=== PATIENT | female | born 1935 | race Caucasian/White ===

== ENCOUNTER 2018-06-20 19:46 | Emergency (ER) | payer OTHER ==
--- NOTE | 2018-06-20 20:46 | RAD REPORT ---
EXAM DESCRIPTION: RAD - Chest Single View - 06/20/2018 8:40 pm CLINICAL HISTORY: SOB Chest pain. COMPARISON: Chest Pa And Lat (2 Views) dated 06/17/2018; Chest Pa And Lat (2 Views) dated 02/21/2018; C hest Single View dated 10/31/2016; Chest Single View dated 10/23/2016 FINDINGS: Portable technique limits examination quality. The lungs are grossly clear. Chronic elevation of the right hemidiaphragm is noted. The heart is norm al in size. No displaced fractures. IMPRESSION: No acute intrathoracic process suspected.
[2018-06-20 20:50] LABS: Absolute Lymphocytes (CBC) 3.3 K/uL (0.7-4.9); Absolute Monocytes 1.1 K/uL (0.1-1.3); Absolute Neutrophil 7.3 K/uL (1.8-8.0); Basophils % 0.7 % (0-1.3); Eosinophils % 2.2 % (0-4.4); Hematocrit 39.6 % (36.0-45.0); Lymphocytes % 27.4 % (15.3-44.8); MCH 27.3 pg (27.0-35.0); MCV 83.9 fL (80-100); MPV 10.1 fL (7.6-11.3); Monocytes % 9.2 % (3.3-12.3); RBC Red Blood Cell Count 4.72 M/uL (3.86-4.86)
[2018-06-20 20:51] LABS: Protime INR 0.97
[2018-06-20] MEDS ORDERED: LEVALBUTEROL 1.25 MG/3 ML NEB ONE (20:51)
[2018-06-20 21:07] LABS: Albumin 3.6 g/dL (3.4-5.0); Bilirubin Direct 0.1 mg/dL (0-0.2); Bilirubin Total 0.3 mg/dL (0.2-1.0); Magnesium 2.6 mg/dL (1.8-2.4); Potassium 3.9 mmol/L (3.5-5.1); Protein, Total 7.6 g/dL (6.4-8.2)
[2018-06-20] MEDS ORDERED: DEXAMETHASONE 10 MG/ML VIAL ONE (22:55)
[2018-06-20 23:04] LABS: Urine Blood NEGATIVE (NEG); Urine Glucose NEGATIVE (NEG); Urine Protein NEGATIVE (NEG)
[2018-06-20 23:30] LABS: Urine Bacteria <20 /HPF (<20); Urine Culture Reflex Order NOT NEEDED; Urine RBC <5 /HPF (NONE SEEN)
--- NOTE | 2018-06-21 00:35 | EDPHYS ---
Physician Documentation [facility] Name: Ciara Moraes Age: 82 yrs Sex: Female : 1935 Arrival Date: 06/20/2018 Time: 19:49 Bed 5 Private MD: ED Physician Kyler Oliveros HPI: 06/20 20:34 This 82 yrs old Female presents to ER via EMS with complaints of Shortness Of wa Breath. 20:34 The patient has shortness of breath at rest, and the patient has a history of SOB. per wa daughter, SOB x 5 months. Told by PMD consistent w/ COPD but recently saw Dr. Hoffman, pulm who said it is not. has pulm fxn tests and echo pending. per daughter, worsening cough x 1 week. SOB worsening x 1 week as well. generalized weakness and listlessness. denies chest pain. denies abd pain. denies fevers or chills. . Onset: The symptoms/episode began/occurred 5 month(s) ago. Duration: The symptoms are continuous, and are steadily getting worse. The patient's shortness of breath is aggravated by exertion, is alleviated by nothing. Associated signs and symptoms: Pertinent positives: non-productive cough, Pertinent negatives: chest pain, productive cough, diaphoresis, dizziness, fever, loss of consciousness, nausea, vomiting. Severity of symptoms: At their worst the symptoms were moderate in the emergency department the symptoms are worse markedly. The patient has experienced similar episodes in the past, several times. The patient has been recently seen by a physician: Dr. Hoffman. Historical: - Allergies: 19:52 NKA; bp - Home Meds: 19:52 Aricept Oral [Active]; Seroquel Oral [Active]; Synthroid Oral [Active]; bp - PMHx: 19:52 Alzheimers; Hypothyroidism; bp - Immunization history:: Adult Immunizations up to date. - Social history:: Smoking status: Patient/guardian denies using tobacco. - Ebola Screening: : Patient negative for fever greater than or equal to 101.5 degrees Fahrenheit, and additional compatible Ebola Virus Disease symptoms Patient denies exposure to infectious person Patient denies travel to an Ebola-affected area in the 21 days before illness onset No symptoms or risks identified at this time. - Family history:: not pertinent. - Hospitalizations: : No recent hospitalization is reported. ROS: 20:41 Constitutional: Negative for fever, chills, and weight loss, Eyes: Negative for injury, wa pain, redness, and discharge, ENT: Negative for injury, pain, and discharge, Neck: Negative for injury, pain, and swelling, Abdomen/GI: Negative for abdominal pain, nausea, vomiting, diarrhea, and constipation, Back: Negative for injury and pain, : Negative for injury, bleeding, discharge, and swelling, MS/Extremity: Negative for injury and deformity, Skin: Negative for injury, rash, and discoloration, Neuro: Negative for headache, weakness, numbness, tingling, and seizure, Psych: Negative for depression, anxiety, suicide ideation, homicidal ideation, and hallucinations. 20:41 Cardiovascular: Negative for chest pain, edema, orthopnea, palpitations, paroxysmal nocturnal dyspnea. 20:41 Respiratory: Positive for cough, with no reported sputum, shortness of breath, at rest. and on exertion. Exam: 20:42 Constitutional: This is a well developed, well nourished patient who is awake, alert, wa and in no acute distress. Head/Face: Normocephalic, atraumatic. Eyes: Pupils equal round and reactive to light, extra-ocular motions intact. Lids and lashes normal. Conjunctiva and sclera are non-icteric and not injected. Cornea within normal limits. Periorbital areas with no swelling, redness, or edema. ENT: Nares patent. No nasal discharge, no septal abnormalities noted. Tympanic membranes are normal and external auditory canals are clear. Oropharynx with no redness, swelling, or masses, exudates, or evidence of obstruction, uvula midline. Mucous membranes moist. Neck: Trachea midline, no thyromegaly or masses palpated, and no cervical lymphadenopathy. Supple, full range of motion without nuchal rigidity, or vertebral point tenderness. No Meningismus. Chest/axilla: Normal chest wall appearance and motion. Nontender with no deformity. No lesions are appreciated. Cardiovascular: Regular rate and rhythm with a normal S1 and S2. No gallops, murmurs, or rubs. Normal PMI, no JVD. No pulse deficits. Abdomen/GI: Soft, non-tender, with normal bowel sounds. No distension or tympany. No guarding or rebound. No evidence of tenderness throughout. Back: No spinal tenderness. No costovertebral tenderness. Full range of motion. Skin: Warm, dry with normal turgor. Normal color with no rashes, no lesions, and no evidence of cellulitis. MS/ Extremity: Pulses equal, no cyanosis. Neurovascular intact. Full, normal range of motion. Neuro: Awake and alert, GCS 15, oriented to person, place, time, and situation. Cranial nerves II-XII grossly intact. Motor strength 5/5 in all extremities. Sensory grossly intact. Cerebellar exam normal. Normal gait. Psych: Awake, alert, with orientation to person, place and time. Behavior, mood, and affect are within normal limits. 20:42 Respiratory: the patient does not display signs of respiratory distress, Respirations: tachypnea, that is mild, Breath sounds: mildly coarse bilaterally in the lower lung phelps, Respiratory rate: mildly tachypneic Vital Signs: 19:52 BP 136 / 64; Pulse 64; Resp 16; Temp 97.7; Pulse Ox 95% ; Weight 49.9 kg; Height 5 ft. bp 3 in. (160.02 cm); 20:18 BP 146 / 72; Pulse 60; Resp 16; Pulse Ox 94% on R/A; mt 21:19 BP 131 / 62; Pulse 64; Resp 16; Pulse Ox 100% ; bp 22:13 BP 130 / 60; Pulse 64; Resp 18; Pulse Ox 96% on R/A; tl2 23:04 BP 148 / 74; Pulse 71; Resp 20; Pulse Ox 96% on R/A; tl2 06/21 00:05 BP 146 / 67; Pulse 76; Resp 18; Pulse Ox 95% on R/A; tl2 00:30 BP 139 / 72; Pulse 67; Resp 14; Pulse Ox 97% ; bp 00:44 BP 139 / 72; Pulse 66; Resp 18; Pulse Ox 97% on R/A; tl2 06/20 19:52 Body Mass Index 19.49 (49.90 kg, 160.02 cm) bp MDM: 06/20 20:01 Patient medically screened. wa 20:43 Differential diagnosis: SOB. r/o acute cardiopulm etiologies. will work up wa comprehensively and reassess. 06/21 00:32 Data reviewed: vital signs, nurses notes, lab test result(s), EKG, radiologic studies. wa Test interpretation: by ED physician or midlevel provider: labs noted for elevated TSH. CXR nml. . 00:32 Test interpretation: by ED physician or midlevel provider: EKG: HR: 63. sinus. low QRS. pa non-specific ST-T changes. 06/20 20:28 Order name: Blood Culture Adult (2) 06/20 20:28 Order name: BMP; Complete Time: 23:58 pa 06/20 20:28 Order name: CBC with Diff; Complete Time: 21:16 06/20 20:28 Order name: Hepatic Function; Complete Time: 23:58 06/20 20:28 Order name: Lipase; Complete Time: 23:59 06/20 20:28 Order name: Magnesium; Complete Time: 23:59 06/20 20:28 Order name: NT PRO-BNP 06/20 20:28 Order name: PT-INR; Complete Time: 21:17 06/20 20:28 Order name: Troponin (emerg Dept Use Only); Complete Time: 21:17 06/20 20:28 Order name: Urine Microscopic Only; Complete Time: 23:59 06/20 22:05 Order name: Thyroid Stimulating Hormone; Complete Time: 23:59 EDMS 06/20 22:55 Order name: Urine Dipstick--Ancillary (enter results); Complete Time: 23:58 [facility] 06/20 23:09 Order name: T4 Free; Complete Time: 23:58 EDMS 06/20 20:28 Order name: XRAY CXR (1 view); Complete Time: 21:16 pa 06/20 20:28 Order name: EKG; Complete Time: 20:06/20 20:28 Order name: Cardiac monitoring; Complete Time: 20:06/20 20:28 Order name: EKG - Nurse/Tech; Complete Time: 20:06/20 20:28 Order name: IV Saline Lock; Complete Time: 20:06/20 20:28 Order name: Labs collected and sent; Complete Time: 20:06/20 20:28 Order name: O2 Per Protocol; Complete Time: 20:29 06/20 20:28 Order name: O2 Sat Monitoring; Complete Time: 20:06/20 20:28 Order name: Urine Dipstick-Ancillary (obtain specimen); Complete Time: 22:50 pa Administered Medications: 06/20 20:53 Drug: Xopenex 1.25 mg Route: Inhalation; tl2 22:55 Drug: Decadron - Dexamethasone 10 mg Route: IVP; Site: right antecubital; tl2 06/21 00:46 Follow up: Response: No adverse reaction tl2 Disposition: 06/21/18 00:34 Discharged to Home. Impression: Shortness of Breath, Hypothyroidism. - Condition is Stable. - Discharge Instructions: Hypothyroidism, Shortness of Breath, [id number]. - Medication Reconciliation Form, Thank You Letter, Antibiotic Education, Prescription Opioid Use form. - Follow up: Chapo Delacruz MD; When: Tomorrow; Reason: Recheck today's complaints. Follow up: Tip Raymond MD; When: 1 - 2 days; Reason: Recheck today's complaints. - Problem is an ongoing problem. - Symptoms have improved. - Notes: follow up with your doctors for your difficulty in breahting. also need folow up for low thyroid. return here for worsening concerns immediately Signatures: Dispatcher [employer] [facility] Aliza Fraser, RN RN tl2 Kyler Oliveros MD MD wa Peltier, Brian, RN RN bp Corrections: (The following items were deleted from the chart) 06/20 22:05 21:47 THYROID STIMULAT HORMONE+C.LAB.BRZ ordered. [facility] 06/21 00:47 00:34 06/21/2018 00:34 Discharged to Home. Impression: Shortness of Breath; tl2 Hypothyroidism. Condition is Stable. Forms are Medication Reconciliation Form, Thank You Letter, Antibiotic Education, Prescription Opioid Use. Follow up: Chapo Delacruz; When: Tomorrow; Reason: Recheck today's complaints. Follow up: Tip Raymond; When: 1 - 2 days; Reason: Recheck today's complaints. Problem is an ongoing problem. Symptoms have improved. wa
--- NOTE | 2018-06-21 00:35 | ER ---
Nurse's Notes [facility] Name: Ciara Moraes Age: 82 yrs Sex: Female : 1935 Arrival Date: 06/20/2018 Time: 19:49 Bed 5 Private MD: Diagnosis: Shortness of Breath;Hypothyroidism Presentation: 06/20 19:50 Presenting complaint: EMS states: THE FAMILY SAID SHE'S BEEN SHORT OF BREATH SINCE THIS bp MORNING. Transition of care: patient was not received from another setting of care. Onset of symptoms was June 20, 2018 at 09:00. Risk Assessment: Do you want to hurt yourself or someone else? Patient reports no desire to harm self or others. Initial Sepsis Screen: Does the patient meet any 2 criteria? No. Patient's initial sepsis screen is negative. Does the patient have a suspected source of infection? No. Patient's initial sepsis screen is negative. Care prior to arrival: Oxygen administered. via nasal cannula. 19:50 Method Of Arrival: EMS: [facility] bp 19:50 Acuity: MERLIN 3 bp Triage Assessment: 19:52 General: Appears in no apparent distress. comfortable, Behavior is calm, cooperative, bp appropriate for age. Pain: Denies pain. Historical: - Allergies: 19:52 NKA; bp - Home Meds: 19:52 Aricept Oral [Active]; Seroquel Oral [Active]; Synthroid Oral [Active]; bp - PMHx: 19:52 Alzheimers; Hypothyroidism; bp - Immunization history:: Adult Immunizations up to date. - Social history:: Smoking status: Patient/guardian denies using tobacco. - Ebola Screening: : Patient negative for fever greater than or equal to 101.5 degrees Fahrenheit, and additional compatible Ebola Virus Disease symptoms Patient denies exposure to infectious person Patient denies travel to an Ebola-affected area in the 21 days before illness onset No symptoms or risks identified at this time. - Family history:: not pertinent. - Hospitalizations: : No recent hospitalization is reported. Screenin:56 Abuse screen: Denies threats or abuse. Denies injuries from another. Nutritional bp screening: No deficits noted. Tuberculosis screening: No symptoms or risk factors identified. Fall Risk None identified. Assessment: 19:54 General: Appears in no apparent distress. comfortable, Behavior is calm, cooperative, bp appropriate for age. Pain: Denies pain. Neuro: Level of Consciousness is awake, alert, obeys commands, Oriented to person, place, situation, Appropriate for age. Cardiovascular: No deficits noted. Respiratory: Airway is patent Respiratory effort is even, unlabored, Respiratory pattern is regular, symmetrical. GI: No signs and/or symptoms were reported involving the gastrointestinal system. : No signs and/or symptoms were reported regarding the genitourinary system. EENT: No deficits noted. Derm: Skin is healthy with good turgor, Skin is clammy, Skin is normal, Skin temperature is cool. Musculoskeletal: Circulation, motion, and sensation intact. Range of motion: intact in all extremities. 21:19 Reassessment: ALL CURRENT ORDERS COMPLETED, LAB/RAD RESULTS PENDING. VS STABLE ON bp MONITOR. 22:14 Reassessment: Patient appears in no apparent distress at this time. Patient and/or tl2 family updated on plan of care and expected duration. Pain level reassessed. Patient is alert, oriented x 3, equal unlabored respirations, skin warm/dry/pink. Patient states feeling better. 23:05 Reassessment: Patient appears in no apparent distress at this time. Patient and/or tl2 family updated on plan of care and expected duration. Pain level reassessed. Patient is alert, oriented x 3, equal unlabored respirations, skin warm/dry/pink. 06/21 00:44 Reassessment: Patient appears in no apparent distress at this time. Patient and/or tl2 family updated on plan of care and expected duration. Pain level reassessed. Patient is alert, oriented x 3, equal unlabored respirations, skin warm/dry/pink. Pt verbalized understanding of discharge instructions, need for follow up. Patient states feeling better. Vital Signs: 06/20 19:52 BP 136 / 64; Pulse 64; Resp 16; Temp 97.7; Pulse Ox 95% ; Weight 49.9 kg; Height 5 ft. bp 3 in. (160.02 cm); 20:18 BP 146 / 72; Pulse 60; Resp 16; Pulse Ox 94% on R/A; mt 21:19 BP 131 / 62; Pulse 64; Resp 16; Pulse Ox 100% ; bp 22:13 BP 130 / 60; Pulse 64; Resp 18; Pulse Ox 96% on R/A; tl2 23:04 BP 148 / 74; Pulse 71; Resp 20; Pulse Ox 96% on R/A; tl2 06/21 00:05 BP 146 / 67; Pulse 76; Resp 18; Pulse Ox 95% on R/A; tl2 00:30 BP 139 / 72; Pulse 67; Resp 14; Pulse Ox 97% ; bp 00:44 BP 139 / 72; Pulse 66; Resp 18; Pulse Ox 97% on R/A; tl2 06/20 19:52 Body Mass Index 19.49 (49.90 kg, 160.02 cm) bp ED Course: 06/20 19:49 Patient arrived in ED. tl2 19:49 Nigel Huggins, RN is Primary Nurse. bp 19:51 Triage completed. bp 19:52 Inserted saline lock: 22 gauge in right antecubital area, using aseptic technique. tl2 Blood collected. placed by radha Ruiz. 19:54 Arm band placed on. bp 20:00 EKG done, by ED staff, reviewed by Kyler Oliveros MD. mt 20:00 Patient has correct armband on for positive identification. Bed in low position. Call bp light in reach. Side rails up X2. Adult w/ patient. 20:01 Kyler Oliveros MD is Attending Physician. wa 20:39 X-ray completed. Portable x-ray completed in exam room. Patient tolerated procedure bb2 well. 20:40 XRAY CXR (1 view) In Process Unspecified. EDNJ 06/21 00:33 Chapo Delacruz MD is Referral Physician. wa 00:34 Tip Raymond MD is Referral Physician. wa 00:44 No provider procedures requiring assistance completed. IV discontinued, intact, tl2 bleeding controlled, No redness/swelling at site. Pressure dressing applied. Administered Medications: 06/20 20:53 Drug: Xopenex 1.25 mg Route: Inhalation; tl2 22:55 Drug: Decadron - Dexamethasone 10 mg Route: IVP; Site: right antecubital; tl2 06/21 00:46 Follow up: Response: No adverse reaction tl2 Outcome: 00:34 Discharge ordered by . wa 00:44 Discharged to home ambulatory, with family. tl2 00:44 Condition: stable 00:44 Discharge instructions given to patient, family, Instructed on discharge instructions, follow up and referral plans. Demonstrated understanding of instructions, follow-up care. 00:47 Patient left the ED. tl2 Addendum: 06/28/2018 10:49 Addendum: Culture Results: Positive urine culture. faxed Culture report to Dr. Delacruz's s s office. Signatures: Dispatcher [employer] Alejandra Resendez RN RN ss Aliza Fraser RN RN tl2 Sara Romo fl Kyler Oliveros MD MD wa Peltier, Brian, RN RN Halina Riddle [facility]
[2018-06-21 00:55] VITALS: TEMP 97.7
[2018-06-21 01:03] VITALS: BP 139/72; O2SAT 97
--- NOTE | 2018-06-21 06:47 | EKG ---
Test Date: 2018-06-20 Test Time: 19:57:28 Smoke Chaser: ROGER MEASUREMENT RESULTS: Intervals: Rate: 63 NV: 214 QRSD: 72 QT: 414 QTc: 423 Tingley: P: 65 NV: 214 QRS: 50 T: 84 INTERPRETIVE STATEMENTS: Sinus rhythm with 1st degree AV block Low voltage QRS Nonspecific T wave abnormality Abnormal ECG Compared to ECG 11/01/2016 05:55:48 First degree AV block now present Low QRS voltage now present T-wave abnormality now present Electronically Signed On 06-21-18 06:46:10 CDT by Norbert Higuera
== END 2018-06-21 00:47 | disposition home or self-care (01) ==
LOC: ER 19:46
DX: R06.02 Shortness of breath (principal); E03.9 Hypothyroidism, unspecified; G30.9 Alzheimer's disease, unspecified; F02.80 Dementia in other diseases classified elsewhere, unspecified severity, without behavioral disturbance, psychotic disturbance, mood disturbance, and anxiety
CPT/HCPCS: 36415; 71045; 80048; 80076; 83690; 83735; 83880; 84439; 84443; 84484; 85025; 85610; 87040 ×2; 87205 ×3; 93005; 96374; 99285; J1100; 81003; 81015; 87077; 87186

== ENCOUNTER 2019-08-03 12:52 | Inpatient (IN) | payer OTHER ==
[2019-08-03] MEDS ORDERED: LEVALBUTEROL 1.25 MG/3 ML NEB ONE ×2 (13:25→15:50)
[2019-08-03 13:39] LABS: Absolute Lymphocytes (CBC) 2.9 K/uL (0.7-4.9); Basophils % 0.7 % (0-1.3); Hematocrit 32.3 % (36.0-45.0); Lymphocytes % 15.3 % (15.3-44.8); MPV 10.1 fL (7.6-11.3); RBC Red Blood Cell Count 4.04 M/uL (3.86-4.86)
[2019-08-03 13:40] LABS: Protime INR 1.15
[2019-08-03 13:58] LABS: ALT/SGPT 9 U/L (12-78); AST/SGOT 10 U/L (15-37); Albumin 2.9 g/dL (3.4-5.0); Alkaline Phosphatase 96 U/L (45-117); BUN Blood Urea Nitrogen 14 mg/dL (7-18); Bicarbonate 25 mmol/L (21-32); Bilirubin Direct 0.2 mg/dL (0-0.2); Bilirubin Total 0.6 mg/dL (0.2-1.0); Glucose Level 122 mg/dL (74-106); NT PRO-BNP 878 pg/mL (<450); Potassium 3.2 mmol/L (3.5-5.1); Protein, Total 6.8 g/dL (6.4-8.2); Sodium Level 137 mmol/L (136-145); Troponin (Emerg Dept Use Only) < 0.02 ng/mL (0.0-0.045)
--- NOTE | 2019-08-03 14:32 | RAD REPORT ---
EXAM DESCRIPTION: RAD - Chest Single View - 08/03/2019 2:23 pm CLINICAL HISTORY: Cough;SOB Chest pain. COMPARISON: Chest Single View dated 06/20/2018; Chest Pa And Lat (2 Views) dated 06/17/2018; Chest Pa And Lat (2 Views) dated 02/21/2018; Chest Single View dated 10/31/2016 FINDINGS: Portable technique limits examination quality. Ill-defined opacities are present in the right lung base suspicious for developing pneumonia. Mild at electasis is also seen in the left lung base. Small right pleural effusion is likely present. The hea rt is mildly prominent in size. Aortic atherosclerosis is noted.
[2019-08-03 14:57] LABS: Urine Bacteria 20-50 /HPF (<20); Urine Culture Reflex Order REFLEXED; Urine Mucus 1+ /HPF (NONE SEEN); Urine RBC <5 /HPF (NONE SEEN)
--- NOTE | 2019-08-03 15:02 | EDPHYS ---
Physician Documentation [facility] Name: Ciara Moraes Age: 83 yrs Sex: Female : 1935 Arrival Date: 08/03/2019 Time: 12:57 Bed 19 Private MD: Chapo Delacruz V ED Physician Joseph Lane HPI: 08/03 12:58 This 83 yrs old Female presents to ER via Unassigned with complaints of cp Productive Cough. 13:00 The patient or guardian reports cough. cp 13:00 Onset: The symptoms/episode began/occurred 2 day(s) ago. cp 13:00 Associated signs and symptoms: Pertinent positives: chest pain, right side of chest, cp fever, shortness of breath, Pertinent negatives: diarrhea, vomiting. Severity of symptoms: in the emergency department the symptoms have improved mildly. Historical: - Allergies: 13:07 NKA; ca1 - Home Meds: 13:07 Synthroid Oral [Active]; ca1 - PMHx: 13:07 Alzheimers; Hypothyroidism; ca1 - Immunization history:: Adult Immunizations up to date. - Social history:: Smoking status: Patient/guardian denies using tobacco. - Ebola Screening: : Patient negative for fever greater than or equal to 101.5 degrees Fahrenheit, and additional compatible Ebola Virus Disease symptoms Patient denies exposure to infectious person Patient denies travel to an Ebola-affected area in the 21 days before illness onset No symptoms or risks identified at this time. ROS: 13:05 Constitutional: Positive for fever, Negative for body aches, poor PO intake. cp 13:05 Eyes: Negative for injury, pain, redness, and discharge. cp 13:05 ENT: Negative for drainage from ear(s), ear pain, sore throat, difficulty swallowing, difficulty handling secretions. 13:05 Cardiovascular: Negative for chest pain, edema. 13:05 Respiratory: Positive for cough, "sounds productive", shortness of breath, at rest. wheezing. 13:05 Abdomen/GI: Negative for abdominal pain, nausea, vomiting, and diarrhea. 13:05 Skin: Negative for rash. 13:05 Neuro: Negative for altered mental status, headache, weakness. 13:05 All other systems are negative. Exam: 13:12 Constitutional: The patient appears alert, awake, non-diaphoretic, non-toxic, well cp developed, well nourished, in obvious distress, mildly distressed. 13:12 Head/Face: Normocephalic, atraumatic. cp 13:12 Eyes: Periorbital structures: appear normal, Conjunctiva: normal, no exudate, no cp injection, Sclera: no appreciated abnormality, Lids and lashes: appear normal, bilaterally. 13:12 ENT: External ear(s): are unremarkable, Ear canal(s): are normal, clear, TM's: bulging, is not appreciated, bilaterally, dullness, bilaterally, erythema, is not appreciated, bilaterally, Nose: is normal, Mouth: Lips: moist, Oral mucosa: pink and intact, moist, Posterior pharynx: is normal, airway is patent, no erythema, no exudate. 13:12 Neck: ROM/movement: is normal, is supple, without pain, no range of motions limitations, no meningismus, no nuchal rigidity. 13:12 Chest/axilla: Inspection: normal, Palpation: is normal, no crepitus, no tenderness. 13:12 Cardiovascular: Rate: normal, Rhythm: regular, Edema: is not appreciated, JVD: is not appreciated. 13:12 Respiratory: mild respiratory distress is noted, Respirations: tachypnea, that is mild, Breath sounds: rhonchi, that are mild, are heard in the right posterior middle lobe and right posterior lower lobe, stridor, is not appreciated, wheezing: that is mild, is heard diffusely. 13:12 Abdomen/GI: Inspection: abdomen appears normal, Bowel sounds: active, all quadrants, Palpation: abdomen is soft and non-tender, in all quadrants, rebound tenderness, is not appreciated, voluntary guarding, is not appreciated, involuntary guarding, is not appreciated. 13:12 Back: CVA tenderness, is absent. 13:12 Skin: no rash present. 13:12 Neuro: Orientation: no acute changes, Mentation: is normal. 13:15 ECG was reviewed by the Attending Physician. cp Vital Signs: 13:07 BP 156 / 58; Pulse 85; Resp 19 S; Temp 99(A); Pulse Ox 100% on Nebulizer Mask; Weight ca1 49.9 kg (R); Height 5 ft. 2 in. (157.48 cm) (R); Pain 0/10; 14:00 BP 123 / 46; Pulse 100; Resp 26; Pulse Ox 100% on Nebulizer Mask; ca1 15:00 BP 131 / 51; Pulse 99; Resp 21 S; Temp 98.3(O); Pulse Ox 100% on Nebulizer Mask; ca1 16:47 BP 140 / 50; Pulse 105; Resp 22 S; Pulse Ox 96% on R/A; ca1 17:34 BP 127 / 58; Pulse 113; Resp 25; Temp 98(O); Pulse Ox 98% on R/A; ca1 13:07 Body Mass Index 20.12 (49.90 kg, 157.48 cm) ca1 MDM: 12:58 Patient medically screened. cp 13:30 Differential diagnosis: bronchitis, flu, pneumonia, sepsis, respiratory failure. cp 14:58 Physician consultation: Chapo Delacruz MD was called at 15:00, was contacted at 15:00, cp regarding admission, to the telemetry unit. patient's condition. 15:00 Data reviewed: vital signs, nurses notes. cp 15:00 Antibiotic administration: Levaquin given. 08/03 12:59 Order name: Basic Metabolic Panel; Complete Time: 14:51 08/03 14:54 Interpretation: Normal except: K 3.2; GLUC 122; GFR 48; CA 8.0. 08/03 12:59 Order name: CBC with Diff; Complete Time: 14:51 08/03 15:14 Interpretation: Normal except: WBC 18.8; HGB 10.8; HCT 32.3; MCV 80.0; MCH 26.7; NEUT A cp 13.8; MNA 1.8. 08/03 12:59 Order name: LFT's; Complete Time: 14:51 08/03 12:59 Order name: Magnesium; Complete Time: 14:51 08/03 12:59 Order name: NT PRO-BNP; Complete Time: 14:51 08/03 12:59 Order name: PT-INR; Complete Time: 14:51 08/03 12:59 Order name: Troponin (emerg Dept Use Only); Complete Time: 14:51 08/03 12:59 Order name: Procalcitonin; Complete Time: 14:51 08/03 14:52 Interpretation: Reviewed. 08/03 12:59 Order name: Lactate; Complete Time: 14:51 08/03 14:52 Interpretation: Within normal limits: LAC 1.4. cp / 12:59 Order name: Influenza Screen (a \\T\\ B); Complete Time: 14:51 cp / 12:59 Order name: Urine Microscopic Only; Complete Time: 14:58 cp / 12:59 Order name: Blood Culture Adult (2) cp / 14:58 Order name: Urine Culture [facility] 08/03 15:00 Order name: Urine Dipstick--Ancillary (enter results) bd 08/03 12:59 Order name: XRAY Chest (1 view); Complete Time: 14:51 cp 08/03 15:21 Order name: Basic Metabolic Panel [facility] 08/03 15:21 Order name: Basic Metabolic Panel [facility] 08/03 15:21 Order name: CBC with Automated Diff [facility] 08/03 15:21 Order name: CBC with Automated Diff [facility] 08/03 15:22 Order name: NT PRO-BNP [facility] 08/03 15:22 Order name: NT PRO-BNP [facility] 08/03 15:22 Order name: Troponin I [facility] 08/03 15:22 Order name: Troponin I [facility] 08/03 15:22 Order name: Troponin I [facility] 08/03 17:51 Order name: Sputum Culture 08/03 12:59 Order name: EKG; Complete Time: 13:01 08/03 12:59 Order name: Cardiac monitoring; Complete Time: 13:37 08/03 12:59 Order name: EKG - Nurse/Tech; Complete Time: 13:37 08/03 12:59 Order name: IV Saline Lock; Complete Time: 13:37 08/03 12:59 Order name: Labs collected and sent; Complete Time: 13:37 08/03 12:59 Order name: O2 Per Protocol; Complete Time: 13:37 08/03 12:59 Order name: O2 Sat Monitoring; Complete Time: 13:38 08/03 12:59 Order name: Urine Dipstick-Ancillary (obtain specimen); Complete Time: 14:39 08/03 15:21 Order name: Regular EDMS EC:15 Rate is 89 beats/min. Rhythm is regular. IN interval is normal. QRS interval is normal. cp QT interval is normal. Interpreted by me. Reviewed by me. Administered Medications: 13:24 Drug: Xopenex (3) 1.25 mg Route: Inhalation; ca1 15:20 Drug: Potassium Effervescent Tablet 50 mEq Route: PO; ca1 16:30 Follow up: Response: No adverse reaction ca1 15:28 Drug: Aspirin Chewable Tablet 324 mg Route: PO; ca1 16:30 Follow up: Response: No adverse reaction ca1 15:30 Drug: LevaQUIN 750 mg Volume: 150 ml; Route: IVPB; Infused Over: 90 mins; Site: left ca1 antecubital; 16:30 Follow up: Response: No adverse reaction; IV Status: Completed infusion ca1 16:00 Drug: Xopenex (3) 1.25 mg Route: Inhalation; ca1 Disposition: 18:44 Co-signature as Attending Physician, Joseph Lane MD. ma2 Disposition: 08/03/19 15:01 Hospitalization ordered by Chapo Delacruz for Inpatient Admission. Preliminary diagnosis is Pneumonia due to other specified bacteria. - Bed requested for Telemetry/MedSurg (Inpatient). - Status is Inpatient Admission. ca1 - Condition is Stable. - Problem is new. - Symptoms have improved. UTI on Admission? No Signatures: Dispatcher [employer] EDJessica Little RN RN Pito Alarcon PA PA cp Joseph Lane MD MD al2 Natasha Chamorro RN RN ca1 Corrections: (The following items were deleted from the chart) 14:54 14:51 Normal except: K 3.2; GLUC 122; GFR 48. cp cp 15:14 14:51 Normal except: WBC 18.8; HGB 10.8; HCT 32.3; MCV 80.0; MCH 26.7; NEUT A 13.8. cp cp 16:31 15:01 Hospitalization Ordered by Chapo Delacruz MD for Inpatient Admission. Preliminary dw diagnosis is Pneumonia due to other specified bacteria. Bed requested for Telemetry/MedSurg (Inpatient). Status is Inpatient Admission. Condition is Stable. Problem is new. Symptoms have improved. UTI on Admission? No. cp 18:07 16:31 08/03/2019 15:01 Hospitalization Ordered by Chapo Delacruz MD for Inpatient ca1 Admission. Preliminary diagnosis is Pneumonia due to other specified bacteria. Bed requested for Telemetry/MedSurg (Inpatient). Status is Inpatient Admission. Condition is Stable. Problem is new. Symptoms have improved. UTI on Admission? No. dw
--- NOTE | 2019-08-03 15:02 | ER ---
Nurse's Notes [facility] Name: Ciara Moraes Age: 83 yrs Sex: Female : 1935 Arrival Date: 08/03/2019 Time: 12:57 Bed 19 Private MD: Chapo Delacruz V Diagnosis: Pneumonia due to other specified bacteria Presentation: 08/03 12:58 Presenting complaint: EMS states: Pt has been having productive cough for few days, ca1 today pt c/o chest and back pain, mostly on the side and shortness of breath. Upon auscultation, wheezing as present mostly on the R lobe. Pt febrile at 101F axillary. Transition of care: patient was received from another setting of care (long-term care facility), [facility]. Onset of symptoms was August 03, 2019. Risk Assessment: Do you want to hurt yourself or someone else? Patient reports no desire to harm self or others. Initial Sepsis Screen: Does the patient meet any 2 criteria? No. Patient's initial sepsis screen is negative. Does the patient have a suspected source of infection? Yes: Productive cough/pneumonia. Care prior to arrival: Medication(s) given: Albuterol Neb x 1, Atrovent Neb x 1, Normal saline infusion, 200ML Tylenol, 1G IV zofran 4 mg, IV initiated. 20 GA, in the left antecubital area, Med neb given. 12:58 Method Of Arrival: EMS: [facility] ca1 12:58 Acuity: MERLIN 2 ca1 Triage Assessment: 13:07 General: Appears in no apparent distress. comfortable, Behavior is calm, cooperative, ca1 appropriate for age. Pain: Denies pain. Respiratory: Reports shortness of breath since today Onset: The symptoms/episode began/occurred this morning, the patient has moderate shortness of breath. Historical: - Allergies: 13:07 NKA; ca1 - Home Meds: 13:07 Synthroid Oral [Active]; ca1 - PMHx: 13:07 Alzheimers; Hypothyroidism; ca1 - Immunization history:: Adult Immunizations up to date. - Social history:: Smoking status: Patient/guardian denies using tobacco. - Ebola Screening: : Patient negative for fever greater than or equal to 101.5 degrees Fahrenheit, and additional compatible Ebola Virus Disease symptoms Patient denies exposure to infectious person Patient denies travel to an Ebola-affected area in the 21 days before illness onset No symptoms or risks identified at this time. Screenin:10 Abuse screen: Denies threats or abuse. Denies injuries from another. Nutritional ca1 screening: No deficits noted. Tuberculosis screening: No symptoms or risk factors identified. Fall Risk IV access (20 points). Ambulatory Aid- Crutches/Cane/Walker (15 pts). Gait- Weak (10 pts.). Total [place] Fall Scale indicates High Risk Score (45 or more points). Fall prevention measures have been instituted. Side Rails Up X 2 Frequent Obs/Assessments Occuring Family Present and informed to notify staff if the need to leave the bedside As available patient and family educated on Fall Prevention Program and Strategies. Assessment: 13:10 General: Appears in no apparent distress. uncomfortable, Behavior is calm, cooperative, ca1 appropriate for age. Pain: Complains of pain in chest Pain does not radiate. Pain currently is 0 out of 10 on a pain scale. at worst was 4 out of 10 on a pain scale. Pain began today Is intermittent. Neuro: Level of Consciousness is awake, alert, obeys commands, Oriented to person, place, time, situation. Cardiovascular: Heart tones S1 S2 present Capillary refill < 3 seconds Patient's skin is warm and dry. Pulses are all present. Rhythm is sinus tachycardia. Respiratory: Reports shortness of breath on exertion cough that is productive, since few days ago Airway is patent Respiratory effort is even, unlabored, Respiratory pattern is regular, symmetrical, Breath sounds are clear bilaterally. GI: Abdomen is flat, non-distended, Bowel sounds present X 4 quads. Abd is soft and non tender X 4 quads. : No deficits noted. No signs and/or symptoms were reported regarding the genitourinary system. EENT: No deficits noted. No signs and/or symptoms were reported regarding the EENT system. Derm: Skin is intact, is fragile, is thin, Skin is pink, warm \\T\\ dry. Musculoskeletal: Circulation, motion, and sensation intact. Capillary refill < 3 seconds, Range of motion: intact in all extremities. 14:00 Reassessment: Patient appears in no apparent distress at this time. Patient and/or ca1 family updated on plan of care and expected duration. Pain level reassessed. Patient is alert, oriented x 3, equal unlabored respirations, skin warm/dry/pink. 15:52 Reassessment: Patient is alert, oriented x 3, equal unlabored respirations, skin ca1 warm/dry/pink. Reassessment: Notified provider. Orders given. Respiratory: Airway is patent Respiratory effort is even, labored, Respiratory pattern is regular, symmetrical, Breath sounds with wheezes in right upper lobe, right posterior upper lobe and right posterior middle lobe. 16:41 Reassessment: Patient appears in no apparent distress at this time. Patient and/or ca1 family updated on plan of care and expected duration. Pain level reassessed. Patient is alert, oriented x 3, equal unlabored respirations, skin warm/dry/pink. 16:41 Respiratory: Airway is patent Respiratory effort is even, unlabored, Respiratory ca1 pattern is regular, symmetrical. 16:42 Reassessment: Called for report. Nurse will call back. ca1 17:04 Reassessment: Called for report. Nurse will call back. ca1 17:34 Reassessment: Patient appears in no apparent distress at this time. Patient and/or ca1 family updated on plan of care and expected duration. Pain level reassessed. Patient is alert, oriented x 3, equal unlabored respirations, skin warm/dry/pink. Daughter at bedside, reports, "My mom has breathing problems and doctors cannot figure out why. She has several test done for her lungs and heart and they couldn't find out what is wrong. A slightest exertion will make her short of breath.". 17:42 Reassessment: Dr. Delacruz at bedside. ca1 17:42 Reassessment: Called for report. Put on hold. Had to attend to other pt. ca1 Vital Signs: 13:07 BP 156 / 58; Pulse 85; Resp 19 S; Temp 99(A); Pulse Ox 100% on Nebulizer Mask; Weight ca1 49.9 kg (R); Height 5 ft. 2 in. (157.48 cm) (R); Pain 0/10; 14:00 BP 123 / 46; Pulse 100; Resp 26; Pulse Ox 100% on Nebulizer Mask; ca1 15:00 BP 131 / 51; Pulse 99; Resp 21 S; Temp 98.3(O); Pulse Ox 100% on Nebulizer Mask; ca1 16:47 BP 140 / 50; Pulse 105; Resp 22 S; Pulse Ox 96% on R/A; ca1 17:34 BP 127 / 58; Pulse 113; Resp 25; Temp 98(O); Pulse Ox 98% on R/A; ca1 13:07 Body Mass Index 20.12 (49.90 kg, 157.48 cm) ca1 ED Course: 12:57 Patient arrived in ED. ca1 12:57 Pito Mackay PA is PHCP. cp 12:[address] MD is Attending Physician. cp 13:05 Triage completed. ca1 13:07 Arm band placed on right wrist. ca1 13:10 Patient has correct armband on for positive identification. Placed in gown. Bed in low ca1 position. Call light in reach. Side rails up X2. developmental services worker on. Pulse ox on. NIBP on. Warm blanket given. Head of bed elevated. 13:17 Natasha Chamorro, RN is Primary Nurse. ca1 13:21 EKG done, by automation engineering technician. reviewed by Pito SOSA. at1 13:30 No provider procedures requiring assistance completed. ca1 13:30 Maintain EMS IV. Dressing intact. Good blood return noted. Site clean \\T\\ dry. Gauge \\T\\ ca 1 site: G20 LAC. 14:24 XRAY Chest (1 view) In Process Unspecified. EDMS 14:57 Chapo Delacruz MD is Private Physician. cp 15:01 Chapo Delacruz MD is Hospitalizing Provider. cp 16:35 Patient admitted, IV remains in place. ca1 Administered Medications: 13:24 Drug: Xopenex (3) 1.25 mg Route: Inhalation; ca1 15:20 Drug: Potassium Effervescent Tablet 50 mEq Route: PO; ca1 16:30 Follow up: Response: No adverse reaction ca1 15:28 Drug: Aspirin Chewable Tablet 324 mg Route: PO; ca1 16:30 Follow up: Response: No adverse reaction ca1 15:30 Drug: LevaQUIN 750 mg Volume: 150 ml; Route: IVPB; Infused Over: 90 mins; Site: left ca1 antecubital; 16:30 Follow up: Response: No adverse reaction; IV Status: Completed infusion ca1 16:00 Drug: Xopenex (3) 1.25 mg Route: Inhalation; ca1 Outcome: 15:01 Decision to Hospitalize by Provider. cp 18:00 Admitted to Med/surg accompanied by tech, via wheelchair, room 202, with oxygen, with ca1 chart, Report called to FLORIN Julian 18:00 Condition: stable 18:00 Instructed on the need for admit. 18:07 Patient left the ED. ca1 Signatures: Dispatcher [employer] EDMS Susan Alicea, press operator helper EKG Tat1 Pito Mackay PA PA cp Acob, Cheryl RN RN ca1 Corrections: (The following items were deleted from the chart) 16:33 13:30 No provider procedures requiring assistance completed. ca1 ca1 16:33 13:30 Inserted saline lock: 22 gauge in right antecubital area, using aseptic ca1 technique. ,using aseptic technique. By FLORIN GUTIERREZ Blood collected. ca1 16:37 12:58 Initial Sepsis Screen: Does the patient meet any 2 criteria? No. Patient's ca1 initial sepsis screen is negative. Does the patient have a suspected source of infection? No. Patient's initial sepsis screen is negative. ca1 16:43 16:41 Reassessment: Patient appears in no apparent distress at this time. Patient ca1 and/or family updated on plan of care and expected duration. Pain level reassessed. Patient is alert, oriented x 3, equal unlabored respirations, skin warm/dry/pink. ca1
[2019-08-03] MEDS ORDERED: Levofloxacin 750mg IV 750 MG/150 ML BAG IV ONE (15:15)
[2019-08-03] MEDS ORDERED: POTASSIUM 25 MEQ EFFERV TAB ONE (15:15)
[2019-08-03] MEDS ORDERED: ASPIRIN 81 MG CHEWABLE TABLET ONE (15:15)
[2019-08-03] MEDS ORDERED: MORPHINE 2 MG/ML SYR IV PRN (15:17)
[2019-08-03] MEDS ORDERED: ONDANSETRON 4 MG/2 ML VIAL IV PRN (15:17)
[2019-08-03] MEDS ORDERED: ALBUTEROL 2.5 MG/3 ML NEB SOL NEB PRN (15:17)
[2019-08-03] MEDS ORDERED: ACETAMINOPHEN 500 MG TAB PO PRN (15:17)
[2019-08-03 15:18] LABS: Urine Blood TRACE (NEG); Urine Glucose NEGATIVE (NEG); Urine Protein TRACE (NEG); Urine Specific Gravity 1.015 (1.005-1.030)
[2019-08-03] MEDS: ENOXAPARIN 40 MG/0.4 ML SQ SCH (18:37)
--- NOTE | 2019-08-03 21:22 | P.HP ---
Certification for Inpatient Patient admitted to: Inpatient With expected LOS: >2 Midnights Practitioner: I am a practitioner with admitting privileges, knowledge of patient current condition, hospital course, and medical plan of care. Services: Services provided to patient in accordance with Admission requirements found in Title 42 Section 412.3 of the Code of Federal Regulations Patient History Date of Service: 08/03/19 Reason for admission: DYSPNEA, COUGH, FEVER. History of Present Illness: MS VARGHESE L[facility] AT [facility]. SHE HAS COPD BY HISTORY BUT ON TOP OF THAT SHE HAS DYSPNEA, COUGH, AND FEVER FOR 3 DAYS. SHE HAS PNUMONIA AND WAS GIVEN LEVAQUIN IN THE ER. Allergies No Known Allergies Allergy (Verified 10/22/16 17:12) Home Medications: Donepezil HCl 23 mg PO DAILY 08/03/19 Levothyroxine [Synthroid] 88 mcg PO [id number] 08/03/19 Paroxetine HCl [Paxil] 40 mg PO BEDTIME 08/03/19 Quetiapine Fumarate [Seroquel] 50 mg PO [id number] 08/03/19 Quetiapine Fumarate [Seroquel] 100 mg PO BEDTIME 08/03/19 - Past Medical/Surgical History Has patient received pneumonia vaccine in the past: Yes Diabetic: No -: hypothyroidism -: alzhemiers -: hysterectomy -: appendectomy - Family History Brother -: Cancer Notes: alzhemiers Sister -: Cancer Notes: alzhemiers - Social History Smoking Status: Never smoker Alcohol use: No CD- Drugs: No Caffeine use: Yes Place of Residence: [facility] Review of Systems 10-point ROS is otherwise unremarkable General: Weakness, Malaise Respiratory: Shortness of Breath Physical Examination - Vital Signs Temperature: 98 F Blood Pressure: 127/58 Pulse: 113 Respirations: 25 - Physical Exam General: Mild distress HEENT: Atraumatic, PERRLA, Mucous membr. moist/pink, EOMI, Sclerae nonicteric Neck: Supple, 2+ carotid pulse no bruit, No LAD, Without JVD or thyroid abnormality Respiratory: Diminished, Expiratory wheezes Cardiovascular: Regular rate/rhythm, Normal S1 S2 Gastrointestinal: Normal bowel sounds, No tenderness Musculoskeletal: No tenderness Integumentary: No rashes Neurological: Normal gait, Normal speech, Normal strength at 5/5 x4 extr, Normal tone, Normal affect Lymphatics: No axilla or inguinal lymphadenopathy - Studies Laboratory Data (last 24 hrs) 08/03/19 13:10: PT 13.5 H, INR 1.15 08/03/19 13:10: WBC 18.8 H, Hgb 10.8 L, Hct 32.3 L, Plt Count 266 08/03/19 13:10: Sodium 137, Potassium 3.2 L, BUN 14, Creatinine 1.09, Glucose 122 H, Magnesium 2.0 D, Total Bilirubin 0.6, AST 10 L, ALT 9 L, Alkaline Phosphatase 96 Microbiology Data (last 24 hrs): 08/03/19 13:15 Nasopharnyx Influenza Type A Antigen Screen - Final 08/03/19 13:15 Nasopharnyx Influenza Type B Antigen Screen - Final Assessment and Plan - Problems (Diagnosis) (1) Bacterial pneumonia Current Visit: Yes Status: Acute Plan: IV LEVAQUIN AND ZITHROMAX ARE RECOMMENDATIONS FOR COMMUNITY ACQUIRED PNEUMONIA. SPUTUM CULTURE CT SCAN IF NOT BETTER. (2) Chronic dyspnea Current Visit: Yes Status: Chronic Plan: HE RFULL CARDIAC AND PULMOANRY BALDERAS IS NEGATIVE BUT HER SYMPTOMS SUGGEST OF COPD WITH HISTORY OF SECOND HAND SMOKING. - Advance Directives Does patient have a Living Will: Yes Does patient have a Durable POA for Healthcare: Yes
[2019-08-03] MEDS: PARoxetine HCl 10 MG TAB PO SCH (22:13)
[2019-08-03] MEDS: QUETIAPINE 100MG TAB PO SCH (22:13)
[2019-08-03 23:14] VITALS: BMI 20.1
[2019-08-04] MEDS: ALBUTEROL 2.5 MG/3 ML NEB SOL NEB SCH ×4 (02:00→20:00)
[2019-08-04] MEDS: QUETIAPINE 25 MG TAB PO SCH (05:19)
[2019-08-04] MEDS: LEVOTHYROXINE SOD 0.088 MG TAB PO SCH (05:19)
[2019-08-04 05:57] LABS: Absolute Lymphocytes (CBC) 0.6 K/uL (0.7-4.9); Basophils % 0.4 % (0-1.3); Hematocrit 29.9 % (36.0-45.0); Lymphocytes % 2.4 % (15.3-44.8); MPV 10.1 fL (7.6-11.3); RBC Red Blood Cell Count 3.75 M/uL (3.86-4.86)
[2019-08-04 06:20] LABS: Potassium 3.5 mmol/L (3.5-5.1)
[2019-08-04 07:00] LABS: Blood Morphology Comment NOT SEEN (NOT SEEN); Platelet Estimate ADEQ
--- NOTE | 2019-08-04 07:41 | EKG ---
Test Date: 2019-08-03 Test Time: 13:07:14 Cpht: JESSICA MEASUREMENT RESULTS: Intervals: Rate: 89 IA: 154 QRSD: 74 QT: 388 QTc: 472 [place]: P: 0 IA: 154 QRS: 9 T: 190 INTERPRETIVE STATEMENTS: Normal sinus rhythm Low voltage QRS Nonspecific ST and T wave abnormality Prolonged QT Abnormal ECG Compared to ECG 06/20/2018 19:57:28 ST (T wave) deviation now present Prolonged QT interval now present First degree AV block no longer present T-wave abnormality no longer present Electronically Signed On 08-04-19 07:38:21 CDT by Irwin Delong
[2019-08-04] MEDS ORDERED: VANCOMYCIN 1.25 GM in NA CHLORIDE 0.9% 250 ML IVPB ONE (09:00)
[2019-08-04] MEDS ORDERED: AZITHROMYCIN IV 500 MG in NA CHLORIDE 0.9% 250 ML IVPB SCH (09:00)
[2019-08-04] MEDS ORDERED: Meropenem 1000 MG/VIAL IV SCH (09:00)
[2019-08-04] MEDS ORDERED: VANCOMYCIN/NS 1 gm 1 GM/250 ML BAG IV SCH (09:00)
[2019-08-04] MEDS: ENOXAPARIN 40 MG/0.4 ML SQ SCH (10:05)
[2019-08-04] MEDS: Meropenem 1,000 MG in NA CHLORIDE 0.9% 100 ML IV SCH ×2 (10:05→21:17)
--- NOTE | 2019-08-04 14:21 | P.PN ---
Subjective Date of Service: 08/04/19 Chief Complaint: DYSPNEA, COUGH, FEVER. Subjective: No new changes SHE HAS SIGNIFICANT DEMENTIA AND NOT ABLE TO DESCRIBE IF SHE IS BETTER OR WORSE. Review of Systems 10-point ROS is otherwise unremarkable General: Weakness, Malaise Respiratory: Cough, Shortness of Breath Physical Examination - Vital Signs Temperature: 97.3 F Blood Pressure: 125/61 Pulse: 80 Respirations: 18 Pulse Ox (%): 94 - Physical Exam General: Mild distress HEENT: Atraumatic, PERRLA, EOMI Neck: Supple, JVD not distended Respiratory: Diminished, Rhonchi/gurgles Cardiovascular: Regular rate/rhythm, Normal S1 S2 Gastrointestinal: Normal bowel sounds, No tenderness Musculoskeletal: No tenderness Integumentary: No rashes Neurological: Normal speech, Normal tone, Normal affect Lymphatics: No axilla or inguinal lymphadenopathy - Studies Laboratory Data (last 24 hrs) 08/03/19 13:10: PT 13.5 H, INR 1.15 Microbiology Data (last 24 hrs): 08/03/19 13:15 Nasopharnyx Influenza Type A Antigen Screen - Final 08/03/19 13:15 Nasopharnyx Influenza Type B Antigen Screen - Final Medications List Reviewed: Yes Assessment And Plan - Current Problems (Diagnosis) (1) Bacterial pneumonia Current Visit: Yes Status: Acute Plan: IV LEVAQUIN AND ZITHROMAX ARE RECOMMENDATIONS FOR COMMUNITY ACQUIRED PNEUMONIA. SPUTUM CULTURE CT SCAN IF NOT BETTER. CLINICALLY SHE LOOKS BETTER BUT HER WBC IS HIGHER. I WILL CHANGE ABX TO MERREM AND VANCOMYCIN SHE COMES FROM INTERMEDIATE HOUSING. FLU TEST IS NEG. SPUTUM CULTURE IS PENDING. NO SIGNS OF CHF CLINCALLY. (2) Chronic dyspnea Current Visit: Yes Status: Chronic Plan: HE RFULL CARDIAC AND PULMOANRY BALDERAS IS NEGATIVE BUT HER SYMPTOMS SUGGEST OF COPD WITH HISTORY OF SECOND HAND SMOKING.
[2019-08-04] MEDS ORDERED: Levofloxacin 750mg IV 750 MG/150 ML BAG IV SCH (15:00)
[2019-08-04] MEDS: IPRATROPIUM BROM 0.5MG/2.5ML NEB PRN (20:00)
[2019-08-04] MEDS ORDERED: NA CHLORIDE 0.9% 500 ML ONE (21:17)
[2019-08-04] MEDS: QUETIAPINE 100MG TAB PO SCH (21:23)
[2019-08-04] MEDS: PARoxetine HCl 10 MG TAB PO SCH (21:23)
[2019-08-04] MEDS: DONEPEZIL HCL 5 MG TAB PO SCH (21:24)
[2019-08-04] MEDS ORDERED: VANCOMYCIN 1 GM/VIAL ONE (21:33)
[2019-08-05] MEDS: ALBUTEROL 2.5 MG/3 ML NEB SOL NEB SCH ×4 (02:00→20:00)
[2019-08-05] MEDS: LEVOTHYROXINE SOD 0.088 MG TAB PO SCH (05:34)
[2019-08-05] MEDS: QUETIAPINE 25 MG TAB PO SCH (05:34)
[2019-08-05 08:09] LABS: Absolute Lymphocytes (CBC) 2.6 K/uL (0.7-4.9); Basophils % 0.2 % (0-1.3); Hematocrit 32.6 % (36.0-45.0); Lymphocytes % 8.9 % (15.3-44.8); MPV 9.6 fL (7.6-11.3); RBC Red Blood Cell Count 4.06 M/uL (3.86-4.86)
[2019-08-05] MEDS: ENOXAPARIN 40 MG/0.4 ML SQ SCH (08:11)
[2019-08-05] MEDS: Meropenem 1,000 MG in NA CHLORIDE 0.9% 100 ML IV SCH ×2 (08:11→21:14)
[2019-08-05 08:32] LABS: Potassium 3.3 mmol/L (3.5-5.1)
[2019-08-05] MEDS ORDERED: POTASSIUM 25 MEQ EFFERV TAB PO ONE (09:02)
[2019-08-05] MEDS: IPRATROPIUM BROM 0.5MG/2.5ML NEB PRN (09:15)
[2019-08-05 09:22] LABS: Blood Morphology Comment NOT SEEN (NOT SEEN); Platelet Estimate ADEQ
--- NOTE | 2019-08-05 15:03 | RAD REPORT ---
EXAM DESCRIPTION: CT - Chest Abdomen Pelvis W Cont - 08/05/2019 2:13 pm CLINICAL HISTORY: Cough and abdominal pain COMPARISON: February 2018 CT chest TECHNIQUE: Computed axial tomography of the chest, abdomen and pelvis was obtained. 100 cc Isovue-30 0 was administered intravenously. Oral contrast was given All CT scans are performed using dose optimization technique as appropriate and may include automated exposure control or mA/KV adjustment according to patient size. FINDINGS: Mild right upper lobe alveolar opacities. Mild right lower lobe atelectasis. Minimal left lung opacities A moderate hiatal hernia Apparent right subclavian artery. No mediastinal or hilar lymphadenopathy A pleural effusion is not seen. A pericardial effusion is not noted. Two hepatic cysts. Largest measures 3 centimeters. Splenic granulomata The pancreas, adrenals and kidneys appear unremarkable. Diverticula stem from the colon without evidence of diverticulitis. Spondylosis involves the lumbar spine resulting in spinal stenosis . 25 millimeter left ovarian cyst IMPRESSION: Mild right upper lobe pneumonia
--- NOTE | 2019-08-05 15:35 | PN ---
Subjective: Ciara Moraes is a demented 83-year-old lady who comes in with shortness of breath, coughing . She continues feeling lot better. She is sitting up in the chair with minimal distress. Physical Examination: Vital Signs: Her blood pressure is 136/74, pulse is 109. Chest: Basal rales. No wheezing. Heart: Regular. No murmur, rub, or gallop. Abdomen: No guarding, no rebound, no rigidity. Laboratory Data: On the lab examination, white count has increased to 29,000, despite being on vanco mycin and meropenem, which I started yesterday. Potassium 3.3, on protocol. Hemoglobin 10.6, low ch ronically. Assessment And Plan: Bacterial pneumonia. I have to order CT scan of chest, abdomen, and pelvis to make sure there is no occult infection, which I am not able to see or hear. Patient will continue on broad-spectrum antibiotic right now, which actually covers airways and low back pain, and I am hopin g this WBC count elevation is a delayed reaction to infection because clinically she is lot better th an before. I will continue to follow up on lab every day, potassium protocol, thyroid medication at home medication. IRIS/BESSY Voice ID: [id number] Report ID: [id number]
[2019-08-05] MEDS ORDERED: VANCOMYCIN/NS 1 gm 1 GM/250 ML BAG IV SCH (21:00)
[2019-08-05] MEDS: PARoxetine HCl 10 MG TAB PO SCH (21:13)
[2019-08-05] MEDS: DONEPEZIL HCL 5 MG TAB PO SCH (21:13)
[2019-08-05] MEDS: QUETIAPINE 100MG TAB PO SCH (21:14)
[2019-08-06] MEDS: ALBUTEROL 2.5 MG/3 ML NEB SOL NEB SCH ×4 (02:00→20:00)
[2019-08-06] MEDS: QUETIAPINE 25 MG TAB PO SCH (05:53)
[2019-08-06] MEDS: LEVOTHYROXINE SOD 0.088 MG TAB PO SCH (05:53)
[2019-08-06] MEDS: Meropenem 1,000 MG in NA CHLORIDE 0.9% 100 ML IV SCH (08:13)
[2019-08-06] MEDS: ENOXAPARIN 40 MG/0.4 ML SQ SCH ×2 (08:21→16:57)
[2019-08-06 08:22] LABS: Basophils % 0.5 % (0-1.3); Hematocrit 32.9 % (36.0-45.0); MPV 9.1 fL (7.6-11.3); RBC Red Blood Cell Count 4.11 M/uL (3.86-4.86)
[2019-08-06] MEDS: levoFLOXacin 500 MG TAB PO SCH (11:38)
--- NOTE | 2019-08-06 17:03 | PN ---
Subjective: Patient is feeling a lot better. She still continues to have minimal-exertion shortness of breath, which has been evaluated fully by Dr. Raymond and Dr. Delong. There are no cardiac iss ues at this point. Pulmonary weiner, Dr. Raymond says she has no COPD. She comes to the hospital for excessive shortness of breath, was found to have small pneumonia in the right upper lobe. Unfortuna tely, white count went up from 17,000 to 24,000 to 29,000 even though she was on antibiotics, so I sw itched her over to meropenem and vancomycin, not knowing the source of pneumonia. So far, pneumonia has been very small in size. Cultures have been negative. Her white count has come down to 15,000, so I am reducing the antibiotic coverage to Levaquin once a day, and she will be going home on Levaqu in, hoping she does not have recurrence of her pneumonia at this point. Her procalcitonin is 1.5. Physical Examination: General: Patient is stable clinically, sitting or lying in the bed with no major distress. Vital Signs: Respiratory rate of 17, blood pressure 129/58, temperature 97.6. Neck: No JVD. No carotid bruits. Lungs: Diffuse mild wheezing is chronic for her. Abdomen: No guarding, no rebound, no rigidity. Neurological: She has moderate dementia. Assessment/plan: 1.Pneumonia, as described above. White count changes are as described above. Levaquin trial again. Possible discharge tomorrow. She already has a nebulizer machine at home. Given that she does not have a particular diagnosis of COPD, her lungs are behaving like COPD and we will continue nebulizer treatment. She has a secondhand exposure of smoking before. 2.Dementia. Continue current medications, which include quetiapine for agitation. She is on donepe zil for dementia and is stable currently. 3.Anxiety. She is on Paxil once a day for anxiety. RVD/MODL Voice ID: [id number] Report ID: [id number]
[2019-08-06] MEDS: ARFORMOTEROL TARTRATE 15 MCG/2 ML VIAL.NEB NEB SCH (20:00)
[2019-08-06] MEDS: PARoxetine HCl 10 MG TAB PO SCH (20:28)
[2019-08-06] MEDS: DONEPEZIL HCL 5 MG TAB PO SCH (20:29)
[2019-08-06] MEDS: QUETIAPINE 100MG TAB PO SCH (20:29)
[2019-08-07] MEDS: ALBUTEROL 2.5 MG/3 ML NEB SOL NEB SCH ×4 (02:00→20:00)
[2019-08-07] MEDS: LEVOTHYROXINE SOD 0.088 MG TAB PO SCH (05:46)
[2019-08-07] MEDS: QUETIAPINE 25 MG TAB PO SCH (05:46)
[2019-08-07 06:28] LABS: Absolute Lymphocytes (CBC) 2.6 K/uL (0.7-4.9); Basophils % 0.5 % (0-1.3); Hematocrit 30.9 % (36.0-45.0); Lymphocytes % 18.7 % (15.3-44.8); MPV 9.1 fL (7.6-11.3); RBC Red Blood Cell Count 3.89 M/uL (3.86-4.86)
[2019-08-07 06:42] LABS: Magnesium 2.4 mg/dL (1.8-2.4); Potassium 4.5 mmol/L (3.5-5.1)
[2019-08-07] MEDS: ARFORMOTEROL TARTRATE 15 MCG/2 ML VIAL.NEB NEB SCH ×2 (08:02→20:00)
[2019-08-07] MEDS: levoFLOXacin 500 MG TAB PO SCH (08:15)
--- NOTE | 2019-08-07 17:20 | PN ---
Subjective: The patient is feeling a lot better. Denies any chest pain, nausea, or vomiting. Still very weak. Objective: Vital Signs: Blood pressure 123/58. Neck: No JVD. No carotid bruits. Chest: No wheezing. Just minimal decreased breath sounds. Heart: Regular. Abdomen: No guarding, no rebound, no rigidity. Laboratory Data: White count down to 13,900 from 29,000, hemoglobin 10.4, stable. Last EKG was norm al, sinus rhythm. Assessment And Plan: Chronic shortness of breath on top of that she had infection pneumonitis, for w hich she received antibiotics IV and now she is on p.o. Levaquin. White count still remaining low. Hopefully that we will be able to discharge her tomorrow. She is still here because she is very weak and not able to walk more than 10 steps with a tendency to fall, which is why I have held her in the hospital for 1 more day. Patient's family aware, I talked to patient's daughter yesterday and today . IRIS/BESSY Voice ID: [id number] Report ID: [id number]
[2019-08-07] MEDS: ENOXAPARIN 40 MG/0.4 ML SQ SCH (18:36)
[2019-08-07] MEDS: PARoxetine HCl 10 MG TAB PO SCH (22:18)
[2019-08-07] MEDS: DONEPEZIL HCL 5 MG TAB PO SCH (22:18)
[2019-08-07] MEDS: QUETIAPINE 100MG TAB PO SCH (22:18)
[2019-08-08] MEDS: ALBUTEROL 2.5 MG/3 ML NEB SOL NEB SCH ×4 (01:10→20:15)
[2019-08-08] MEDS: QUETIAPINE 25 MG TAB PO SCH (05:14)
[2019-08-08] MEDS: LEVOTHYROXINE SOD 0.088 MG TAB PO SCH (05:14)
[2019-08-08 05:43] LABS: Absolute Lymphocytes (CBC) 2.9 K/uL (0.7-4.9); Basophils % 0.6 % (0-1.3); Hematocrit 31.6 % (36.0-45.0); Lymphocytes % 18.4 % (15.3-44.8); MPV 8.4 fL (7.6-11.3); RBC Red Blood Cell Count 3.96 M/uL (3.86-4.86)
[2019-08-08 06:02] LABS: Potassium 4.5 mmol/L (3.5-5.1)
[2019-08-08 08:18] LABS: Urine White Blood Cell Casts OK
[2019-08-08 08:19] LABS: Blood Morphology Comment NOTED (NOT SEEN); Burr Cells 1+; Elliptocytes 1+; Platelet Estimate ADEQ
[2019-08-08] MEDS: levoFLOXacin 500 MG TAB PO SCH (08:33)
[2019-08-08] MEDS: ARFORMOTEROL TARTRATE 15 MCG/2 ML VIAL.NEB NEB SCH ×2 (08:38→20:15)
--- NOTE | 2019-08-08 09:42 | RAD REPORT ---
EXAM DESCRIPTION: RAD - Chest Pa And Lat (2 Views) - 08/08/2019 9:10 am CLINICAL HISTORY: Pneumonia Chest pain. COMPARISON: Chest Single View dated 08/03/2019; Chest Single View dated 06/20/2018; Chest Pa And Lat ( 2 Views) dated 06/17/2018; Chest Pa And Lat (2 Views) dated 02/21/2018; Chest Abdomen Pelvis W Cont date d 08/05/2019 FINDINGS: Linear atelectasis is present in the right lung base. There is elevation of the right lita diaphragm noted, chronic. Small right pleural effusion suspected. The heart is mildly prominent in si ze. A small hiatal hernia is present. No displaced fractures. Aortic atherosclerosis. IMPRESSION: Linear atelectasis is seen in the right lung base with a small right pleural effusion.
[2019-08-08 13:14] LABS: Absolute Lymphocytes (CBC) 1.8 K/uL (0.7-4.9); Basophils % 0.4 % (0-1.3); Hematocrit 32.5 % (36.0-45.0); Lymphocytes % 10.4 % (15.3-44.8); MPV 8.6 fL (7.6-11.3); RBC Red Blood Cell Count 4.07 M/uL (3.86-4.86)
[2019-08-08] MEDS ORDERED: VANCOMYCIN/NS 1 gm 1 GM/250 ML BAG IVPB SCH (18:00)
--- NOTE | 2019-08-08 18:07 | PN ---
Subjective: Patient is feeling about the same. Has no new complaints. No coughing or sputum. Shor t of breath with minimal exertion. Objective: Vital signs: Blood pressure 136/60, pulse is 82, afebrile. Chest: Clear. Decreased breath sounds. Heart: Regular. Abdomen: No guarding, no rebound, no rigidity. Laboratory Data: White count 15,500, hemoglobin 10.4. Some of the white count is eosinophils, which could be from the medications. On chest x-ray evaluation, I talked to Dr. Bnagura and he does not see any pneumonia any longer, just small atelectasis. Assessment And Plan: Leukocytosis. I am watching her white count to see if it goes higher than this or does it go lower next time. I do not see any signs of infection on patient. She had procalciton in slightly high, but her blood cultures are negative. Chest x-ray is negative. Heart exam negative . UA is negative. There are no clinical signs of infection. Leukocytosis. Follow up for pneumonia and need to have a normal number before I can get her out of h ere. Continue Levaquin p.o., check CBC again. I do not see in the list anything, which is causing e osinophilia for this lady, but again, antibiotic or any chemicals can do that. Prognosis is guarded. Patient has significant dementia and hypothyroidism also. RVD/MODL Voice ID: [id number] Report ID: [id number]
[2019-08-08] MEDS: ENOXAPARIN 40 MG/0.4 ML SQ SCH (18:31)
[2019-08-08] MEDS: PARoxetine HCl 10 MG TAB PO SCH (20:54)
[2019-08-08] MEDS: QUETIAPINE 100MG TAB PO SCH (20:54)
[2019-08-08] MEDS: DONEPEZIL HCL 5 MG TAB PO SCH (20:54)
[2019-08-08] MEDS ORDERED: VANCOMYCIN 1.25 GM in NA CHLORIDE 0.9% 250 ML IVPB ONE (21:00)
[2019-08-09] MEDS: ALBUTEROL 2.5 MG/3 ML NEB SOL NEB SCH ×4 (01:40→20:00)
[2019-08-09] MEDS: QUETIAPINE 25 MG TAB PO SCH (05:06)
[2019-08-09] MEDS: LEVOTHYROXINE SOD 0.088 MG TAB PO SCH (05:06)
[2019-08-09 06:18] LABS: Basophils % 0.4 % (0-1.3); Hematocrit 32.6 % (36.0-45.0); Lymphocytes % 12.3 % (15.3-44.8); MPV 8.2 fL (7.6-11.3); RBC Red Blood Cell Count 4.08 M/uL (3.86-4.86)
[2019-08-09 06:36] LABS: Potassium 4.1 mmol/L (3.5-5.1)
[2019-08-09] MEDS: ARFORMOTEROL TARTRATE 15 MCG/2 ML VIAL.NEB NEB SCH ×2 (07:27→20:00)
[2019-08-09] MEDS: levoFLOXacin 500 MG TAB PO SCH (08:46)
[2019-08-09 11:57] LABS: Blood Morphology Comment NOT SEEN (NOT SEEN); Platelet Estimate ADEQ
--- NOTE | 2019-08-09 14:34 | RAD REPORT ---
EXAM DESCRIPTION: RAD - Chest Single View - 08/09/2019 2:23 pm CLINICAL HISTORY: Device placement PICC line placement IMPRESSION: PICC line with its tip in the distal superior vena cava
[2019-08-09] MEDS: ENOXAPARIN 40 MG/0.4 ML SQ SCH (16:29)
[2019-08-09] MEDS: PARoxetine HCl 10 MG TAB PO SCH (20:14)
[2019-08-09] MEDS: QUETIAPINE 100MG TAB PO SCH (20:14)
[2019-08-09] MEDS: DONEPEZIL HCL 5 MG TAB PO SCH (20:14)
[2019-08-10] MEDS: ALBUTEROL 2.5 MG/3 ML NEB SOL NEB SCH ×4 (02:00→19:30)
--- NOTE | 2019-08-10 02:52 | PN ---
Subjective: Patient is feeling lot better than yesterday. Denies any chest pain, nausea, or vomiting. Objective: Vital Signs: Blood pressure 155/71, she is afebrile, now pulse is 86. HEENT: No JVD. No carotid bruits. Heart: Regular. Lungs: Minimal diffuse wheezing. Abdomen: No guarding, no rebound, no rigidity. Assessment/plan: Sepsis. Patient seems to have some kind of infection mainly respiratory, which is possible because of methicillin-resistant Staphylococcus aureus. Because on Levaquin alone, she did not do well for 2 days[place] [address]. When I placed her back on vancomycin, she started to feel better and her white count came down to 16,000. Plan: At this point is to continue vancomycin for about 10-14 days total to be clear of the respiratory infections. Even though pneumonia is small, it seems likely there is some infection with bacteria that is resistant to Levaquin and giving rise to her symptoms. So I will try to do this and if she is not able to afford to, she will be going to long-term care or a penitentiary facility. IRIS/BESSY Voice ID: [id number] Report ID: [id number] UMA
[2019-08-10] MEDS: LEVOTHYROXINE SOD 0.088 MG TAB PO SCH (05:18)
[2019-08-10] MEDS: QUETIAPINE 25 MG TAB PO SCH (05:18)
[2019-08-10 05:39] LABS: Absolute Lymphocytes (CBC) 2.1 K/uL (0.7-4.9); Basophils % 0.5 % (0-1.3); Hematocrit 29.1 % (36.0-45.0); Lymphocytes % 14.3 % (15.3-44.8); MPV 8.3 fL (7.6-11.3); RBC Red Blood Cell Count 3.68 M/uL (3.86-4.86)
[2019-08-10] MEDS: ARFORMOTEROL TARTRATE 15 MCG/2 ML VIAL.NEB NEB SCH ×2 (07:30→19:30)
[2019-08-10] MEDS: levoFLOXacin 500 MG TAB PO SCH (10:07)
[2019-08-10] MEDS: VANCOMYCIN/NS 1 gm 1 GM/250 ML BAG IVPB SCH (11:27)
[2019-08-10] MEDS: ENOXAPARIN 40 MG/0.4 ML SQ SCH (16:39)
[2019-08-10] MEDS: QUETIAPINE 100MG TAB PO SCH (21:11)
[2019-08-10] MEDS: PARoxetine HCl 10 MG TAB PO SCH (21:11)
[2019-08-10] MEDS: DONEPEZIL HCL 5 MG TAB PO SCH (21:11)
--- NOTE | 2019-08-11 01:22 | PN ---
Subjective: Patient is feeling a lot better. She is much stronger. Denies any chest pain, nausea, or vomiting. Physical Examination: Vital Signs: Blood pressure 108/85, pulse is 85. She is afebrile. Chest: Clear. Heart: Regular. Abdomen: No guarding, no rebound, no rigidity. Assessment And Plan: 1. Methicillin-resistant Staphylococcus aureus pneumonia, clinically diagnosed , improving only after vancomycin. Her white count is coming down only after I started her on vancomycin again. Levaquin alone did not work, which is why I suspect she has MRSA character for this pneumonia, even though it was small. She was very asymptomatic from it with a white count as high as 29,000. IV vancomycin to continue about 10 to 14 days and we are waiting for a psychosocial rehabilitation counselor to give us an opinion after I talk with the insurance company. 2. Dementia, hypothyroidism, respiratory findings of chronic bronchitis, all stable for now. RVD/MODL Voice ID: [id number] Report ID: [id number] UMA
[2019-08-11] MEDS: ALBUTEROL 2.5 MG/3 ML NEB SOL NEB SCH ×4 (01:30→19:45)
[2019-08-11 05:38] LABS: Absolute Lymphocytes (CBC) 1.8 K/uL (0.7-4.9); Basophils % 0.9 % (0-1.3); Lymphocytes % 15.2 % (15.3-44.8); MPV 8.1 fL (7.6-11.3); RBC Red Blood Cell Count 3.57 M/uL (3.86-4.86)
[2019-08-11 05:51] LABS: Potassium 3.8 mmol/L (3.5-5.1)
[2019-08-11] MEDS: QUETIAPINE 25 MG TAB PO SCH (05:52)
[2019-08-11] MEDS: LEVOTHYROXINE SOD 0.088 MG TAB PO SCH (05:53)
[2019-08-11] MEDS: ARFORMOTEROL TARTRATE 15 MCG/2 ML VIAL.NEB NEB SCH ×2 (06:20→19:45)
--- NOTE | 2019-08-11 08:40 | RAD REPORT ---
EXAM DESCRIPTION: RAD - Chest Single View - 08/11/2019 8:23 am CLINICAL HISTORY: Pneumonia COMPARISON: August 09 portable chest, August 05 CT chest TECHNIQUE: AP portable chest image was obtained 0821 hours . FINDINGS: Lung volumes remain low. Right hemidiaphragm elevation with chronic atelectasis again note d. PICC line remains in place. There is better aeration of the left lung base. Large hiatal hernia no scottie. Trachea is midline. Heart and vasculature are normal. No measurable pleural effusion and no pneu mothorax. No acute bony abnormality seen. No acute aortic findings suspected. IMPRESSION: Improved aeration of the left lung base. Chronic atelectasis remains present adjacent to the elevated right hemidiaphragm. No new or progressive finding.
[2019-08-11] MEDS ORDERED: POTASSIUM CL SA 10 MEQ TAB PO ONE (09:00)
[2019-08-11] MEDS: levoFLOXacin 500 MG TAB PO SCH (09:54)
[2019-08-11] MEDS: ENOXAPARIN 40 MG/0.4 ML SQ SCH (16:29)
--- NOTE | 2019-08-11 18:38 | PN ---
Subjective: Patient is feeling lot better. Denies any chest pain, nausea, vomiting. She wheezes of f and on. Objective: Heart: Regular. Abdomen: No guarding. No rebound. No rigidity. Vital Signs: Blood pressure 144/67, temperature afebrile, pulse is 86. Laboratory Data: Her white count came down to which is 11,700 from 14,000, hemoglobin 9.4, hematocri t stable. Assessment And Plan: Methicillin-resistant Staphylococcus aureus pneumonia. I suspect she had methi cillin-resistant Staphylococcus aureus pneumonia on admission because initially, she did not respond to Levaquin, and she got better when I put her on vancomycin and meropenem because she failed to leigha joon on Levaquin. Her white count went up to 29,000. She improved gradually after that. I decided t o put her back on Levaquin to discharge her in a day or 2, but her white count started to go up after I stopped her vancomycin and went up to as high as 17,000, and she got worse in her shortness of tegan ath. I decided to place her back on vancomycin about 3 days ago, and since then, the white count has come down from 17,000 to 16,000 to 14,000, now to 11,700. This is just with addition of vancomycin, which is why I suspect she has methicillin-resistant Staphylococcus aureus character of the small pn eumonia she had, and without vancomycin, she will rapidly get worse. I would like to finish vancomyc in course for about 14 days. Insurance company has rejected that decision. I would hope the social services analyst will fax this report to the insurance company. I have called the insurance company myself to get an approval, left a number with their doctor, which is medical technologist microbiology, to call me back today, a nd it looks like unfortunately this will not happen today, she will end up in hospital for few more d ays. She will possibly finish the course of vancomycin here and go home from the hospital, which is what probably most insurance companies want, delayed tactics to cut down their cost. In any case, patient's family will be made aware of this. IRIS/BESSY Voice ID: [id number] Report ID: [id number]
[2019-08-11] MEDS: VANCOMYCIN/NS 1 gm 1 GM/250 ML BAG IVPB SCH (21:46)
[2019-08-11] MEDS: QUETIAPINE 100MG TAB PO SCH (21:47)
[2019-08-11] MEDS: PARoxetine HCl 10 MG TAB PO SCH (21:47)
[2019-08-11] MEDS: DONEPEZIL HCL 5 MG TAB PO SCH (21:47)
[2019-08-12] MEDS: ALBUTEROL 2.5 MG/3 ML NEB SOL NEB SCH ×4 (01:30→19:35)
[2019-08-12 06:17] LABS: Absolute Lymphocytes (CBC) 1.6 K/uL (0.7-4.9); Basophils % 0.5 % (0-1.3); Hematocrit 28.5 % (36.0-45.0); Lymphocytes % 13.4 % (15.3-44.8); MPV 8.4 fL (7.6-11.3); RBC Red Blood Cell Count 3.63 M/uL (3.86-4.86)
[2019-08-12 06:27] LABS: Potassium 3.9 mmol/L (3.5-5.1)
[2019-08-12] MEDS: ARFORMOTEROL TARTRATE 15 MCG/2 ML VIAL.NEB NEB SCH ×2 (07:25→19:35)
[2019-08-12] MEDS: LEVOTHYROXINE SOD 0.088 MG TAB PO SCH (07:37)
[2019-08-12] MEDS: QUETIAPINE 25 MG TAB PO SCH (07:39)
[2019-08-12] MEDS ORDERED: POTASSIUM CL SA 10 MEQ TAB PO ONE (09:00)
[2019-08-12] MEDS: levoFLOXacin 500 MG TAB PO SCH (09:12)
--- NOTE | 2019-08-12 14:24 | PN ---
Subjective: Ms. Moraes is continuing to have some wheezing which is diffuse and chronic for her. Dr. Micky rios did full checkup and COPD has been ruled out, but she needs nebulizer treatments, I am adding Symbicort to help more. Physical Examination: Vital Signs: Blood pressure 132/60, pulse is 73. HEENT: No JVD. No carotid bruits. Chest: Decreased breath sounds bilaterally. Decreased minimal wheezing, which is chronic. Neurolog ical: History of dementia, which is moderate. Assessment Planning: Pneumonia with possible methicillin-resistant Staphylococcus aureus character, with improvement of white count only happened after I added vancomycin. Even though I do not have an y proof for methicillin-resistant Staphylococcus aureus, I suspect this is methicillin-resistant Stap hylococcus aureus. Insurance company is rejecting transfer to [facility]. I will keep her here un til Wednesday and Wednesday possibly will be discharged home on oral Bactrim DS once white count has normal ized. White count is still 11,600, down from 17,000 while she was not on vancomycin at that time. C urrently stable. RVD/MODL Voice ID: [id number] Report ID: [id number]
[2019-08-12] MEDS: ENOXAPARIN 40 MG/0.4 ML SQ SCH (16:23)
[2019-08-12] MEDS: VANCOMYCIN/NS 1 gm 1 GM/250 ML BAG IVPB SCH (21:17)
[2019-08-12] MEDS: PARoxetine HCl 10 MG TAB PO SCH (21:20)
[2019-08-12] MEDS: DONEPEZIL HCL 5 MG TAB PO SCH (21:21)
[2019-08-12] MEDS: QUETIAPINE 100MG TAB PO SCH (21:21)
[2019-08-12] MEDS: DULERA 100/5 (MOMETASONE/FORMOTEROL) INHALER IH SCH (21:52)
[2019-08-13] MEDS: ALBUTEROL 2.5 MG/3 ML NEB SOL NEB SCH ×4 (01:40→20:00)
[2019-08-13 04:44] LABS: Absolute Lymphocytes (CBC) 2.2 K/uL (0.7-4.9); Basophils % 0.4 % (0-1.3); Hematocrit 29.9 % (36.0-45.0); MPV 8.4 fL (7.6-11.3); RBC Red Blood Cell Count 3.79 M/uL (3.86-4.86)
[2019-08-13 04:51] LABS: Potassium 4.1 mmol/L (3.5-5.1)
[2019-08-13] MEDS: QUETIAPINE 25 MG TAB PO SCH (05:26)
[2019-08-13] MEDS: LEVOTHYROXINE SOD 0.088 MG TAB PO SCH (05:27)
[2019-08-13] MEDS: levoFLOXacin 500 MG TAB PO SCH (08:26)
[2019-08-13] MEDS: DULERA 100/5 (MOMETASONE/FORMOTEROL) INHALER IH SCH ×2 (09:00→20:57)
[2019-08-13] MEDS: ARFORMOTEROL TARTRATE 15 MCG/2 ML VIAL.NEB NEB SCH ×2 (09:25→20:00)
[2019-08-13] MEDS: ENOXAPARIN 40 MG/0.4 ML SQ SCH (17:00)
[2019-08-13 18:50] LABS: Urine Appearance CLEAR; Urine Bilirubin NEGATIVE (NEG); Urine Blood TRACE (NEG); Urine Color STRAW; Urine Glucose NEGATIVE (NEG)
[2019-08-13 18:51] LABS: Urine Bacteria <20 /HPF (<20); Urine Culture Reflex Order NOT NEEDED; Urine Mucus MOD /HPF (NONE SEEN); Urine Protein NEGATIVE (NEG); Urine RBC <5 /HPF (NONE SEEN); Urine Urobilinogen 0.2 mg/dL (0.2-1.0)
[2019-08-13 19:16] LABS: Basophils % 0.4 % (0-1.3); Hematocrit 28.3 % (36.0-45.0); Lymphocytes % 13.3 % (15.3-44.8); MPV 8.9 fL (7.6-11.3); RBC Red Blood Cell Count 3.59 M/uL (3.86-4.86)
[2019-08-13] MEDS: PARoxetine HCl 10 MG TAB PO SCH (20:57)
[2019-08-13] MEDS: DONEPEZIL HCL 5 MG TAB PO SCH (20:57)
[2019-08-13] MEDS: QUETIAPINE 100MG TAB PO SCH (20:58)
[2019-08-13] MEDS: VANCOMYCIN/NS 1 gm 1 GM/250 ML BAG IVPB SCH ×2 (21:00→21:01)
--- NOTE | 2019-08-13 23:31 | PN ---
Subjective: Patient is doing great. She is feeling so much better. She denies chest pain, nausea, vomiting. Her breathing has improved. Physical Examination: Vital Signs: She is afebrile, 99.8 maximum; blood pressure 133/60; pulse is 92. Her oxygen has impr johnathon to 96% on room air. HEENT: No JVD. No carotid bruits. Chest: Clear. Heart: Regular. Abdomen: No guarding. Neurologic: She has dementia, moderate. Laboratory Data: White count has somewhat raised from 11,600 to 12,800 today, hemoglobin is 10.0, he matocrit 29, and chem-7 is normal. Assessment And Plan: Possibility of methicillin-resistant Staphylococcus aureus respiratory infectio n. I hope her repeat blood count shows improvement because she clinically looks great. I will be ch anging the antibiotics if she gets worse on her white count. Even though her lungs show much of infl ammation on the regular chest x-ray, the CT scan showed a small pneumonia and she did come back with 25,000 white count. Prognosis remains overall guarded. Discharge plan depends on the next white cou nt. IRIS/BESSY Voice ID: [id number] Report ID: [id number]
[2019-08-14] MEDS ORDERED: Meropenem 500 MG/100 ML BAG ONE (00:46)
[2019-08-14] MEDS ORDERED: NA CHLORIDE 0.9% 250 ML ONE (00:53)
[2019-08-14] MEDS ORDERED: Meropenem 500 MG VIAL IV SCH (01:00)
[2019-08-14] MEDS: ALBUTEROL 2.5 MG/3 ML NEB SOL NEB SCH ×4 (02:00→20:00)
[2019-08-14] MEDS: QUETIAPINE 25 MG TAB PO SCH (06:06)
[2019-08-14] MEDS: LEVOTHYROXINE SOD 0.088 MG TAB PO SCH (06:06)
[2019-08-14] MEDS: ARFORMOTEROL TARTRATE 15 MCG/2 ML VIAL.NEB NEB SCH ×2 (07:35→20:00)
[2019-08-14 07:51] LABS: Absolute Lymphocytes (CBC) 1.5 K/uL (0.7-4.9); Basophils % 0.5 % (0-1.3); Hematocrit 27.1 % (36.0-45.0); Lymphocytes % 13.8 % (15.3-44.8); MPV 8.5 fL (7.6-11.3); Potassium 4.1 mmol/L (3.5-5.1); RBC Red Blood Cell Count 3.43 M/uL (3.86-4.86)
[2019-08-14] MEDS: Meropenem 500 MG in NA CHLORIDE 0.9% 100 ML IV SCH ×2 (09:07→17:19)
[2019-08-14] MEDS: DULERA 100/5 (MOMETASONE/FORMOTEROL) INHALER IH SCH ×2 (09:07→20:29)
[2019-08-14] MEDS: ENOXAPARIN 40 MG/0.4 ML SQ SCH (17:19)
[2019-08-14] MEDS: QUETIAPINE 100MG TAB PO SCH (20:30)
[2019-08-14] MEDS: PARoxetine HCl 10 MG TAB PO SCH (20:30)
[2019-08-14] MEDS: DONEPEZIL HCL 5 MG TAB PO SCH (20:30)
[2019-08-15] MEDS: Meropenem 500 MG in NA CHLORIDE 0.9% 100 ML IV SCH ×3 (00:03→16:48)
[2019-08-15] MEDS: ALBUTEROL 2.5 MG/3 ML NEB SOL NEB SCH ×4 (02:00→20:00)
--- NOTE | 2019-08-15 02:15 | PN ---
Subjective: Ms. Moraes is an interesting patient, where her shortness of breath is about the same. Her temperature is normal, but her white count has gone up now even though she was on vancomycin and Lev aquin. At that point, yesterday evening, I changed her back to meropenem and the white count is down now to 11,000. Unfortunately, she is not able to stay out of hospital currently as she needs IV ant ibiotic, now meropenem, and I have stopped the vancomycin and Levaquin as they quit working now. Physical Examination: Vital Signs: Blood pressure 146/64. Chest: Clear. Decreased breath sounds bilaterally. Heart: Regular. Occasional wheezing. Abdomen: No guarding, no rebound, no rigidity. Investigations: White count as described above, reducing again with use of meropenem. Assessment And Planning: Stopped Levaquin and vancomycin. Unclear to identify the bacteria because she is not able to produce any sputum, her blood cultures are negative, her UA and urine culture is n egative. Her source of infection or white count elevation is lungs at this point. Insurance company is refusing intermediate placement. I have called the medical insurance claims processor for her insurance company on Wednesday. I am waiting for reply of a phone call still. I will possibly discharge her at home with A ugmentin if we do not find a way to get at a intermediate and I hope she does not come back with read mission. IRIS/BESSY Voice ID: [id number] Report ID: [id number]
[2019-08-15] MEDS: LEVOTHYROXINE SOD 0.088 MG TAB PO SCH (05:43)
[2019-08-15] MEDS: QUETIAPINE 25 MG TAB PO SCH (05:43)
[2019-08-15] MEDS: ARFORMOTEROL TARTRATE 15 MCG/2 ML VIAL.NEB NEB SCH ×2 (07:30→20:00)
[2019-08-15 08:26] LABS: Absolute Lymphocytes (CBC) 1.3 K/uL (0.7-4.9); Basophils % 0.8 % (0-1.3); Hematocrit 26.8 % (36.0-45.0); Lymphocytes % 13.2 % (15.3-44.8); MPV 8.5 fL (7.6-11.3)
[2019-08-15 08:40] LABS: Albumin 2.3 g/dL (3.4-5.0); Bilirubin Total 0.3 mg/dL (0.2-1.0); Protein, Total 5.7 g/dL (6.4-8.2)
[2019-08-15] MEDS: DULERA 100/5 (MOMETASONE/FORMOTEROL) INHALER IH SCH ×2 (09:48→21:11)
[2019-08-15] MEDS: ENOXAPARIN 40 MG/0.4 ML SQ SCH (16:48)
--- NOTE | 2019-08-15 18:12 | PN ---
Subjective: Patient is feeling a lot better. Denies any chest pain, nausea, or vomiting. She is sh ort of breath at rest, but minimally. Physical Examination: Vital Signs: Blood pressure 120/70, pulse is 79. HEENT: No JVD. No carotid bruits. Chest: Decreased breath sounds bilaterally. Minimal wheezing, which is chronic for her. Laboratory Data: Her white count is down to normal now 10,000 which is after 2 days of meropenem. O therwise, blood is stable. Assessment And Plan: Respiratory infection, which is resistant to vancomycin and Levaquin described in detail before how the white count went up and down with changing antibiotics. Now with meropenem, it is [place] [address] [place] 6 hours on vancomycin and Levaquin. So, I believe she has some bacteria, which is difficult to culture at this point because there is no sput um to produce, but without this meropenem treatment, I might wonder she will be back in the hospital for sepsis again. She was in this hospital on this admission with [id number] white count, which is why I have kept a longer here for IV antibiotics. [facility] . IRIS/BESSY Voice ID: [id number] Report ID: [id number]
[2019-08-15] MEDS: PARoxetine HCl 10 MG TAB PO SCH (21:11)
[2019-08-15] MEDS: QUETIAPINE 100MG TAB PO SCH (21:12)
[2019-08-15] MEDS: DONEPEZIL HCL 5 MG TAB PO SCH (21:12)
[2019-08-16] MEDS: Meropenem 500 MG in NA CHLORIDE 0.9% 100 ML IV SCH ×3 (00:39→16:38)
[2019-08-16] MEDS: ALBUTEROL 2.5 MG/3 ML NEB SOL NEB SCH ×4 (02:00→20:00)
[2019-08-16 04:55] LABS: Absolute Lymphocytes (CBC) 1.7 K/uL (0.7-4.9); Basophils % 0.5 % (0-1.3); Hematocrit 26.5 % (36.0-45.0); Lymphocytes % 16.5 % (15.3-44.8); MPV 8.8 fL (7.6-11.3); RBC Red Blood Cell Count 3.37 M/uL (3.86-4.86)
[2019-08-16 05:22] LABS: Albumin 2.3 g/dL (3.4-5.0); Bilirubin Total 0.4 mg/dL (0.2-1.0); Potassium 4.1 mmol/L (3.5-5.1); Protein, Total 5.7 g/dL (6.4-8.2)
[2019-08-16] MEDS: LEVOTHYROXINE SOD 0.088 MG TAB PO SCH (05:31)
[2019-08-16] MEDS: QUETIAPINE 25 MG TAB PO SCH (05:31)
[2019-08-16] MEDS: ARFORMOTEROL TARTRATE 15 MCG/2 ML VIAL.NEB NEB SCH ×2 (07:40→20:00)
[2019-08-16] MEDS: DULERA 100/5 (MOMETASONE/FORMOTEROL) INHALER IH SCH ×2 (08:43→22:09)
[2019-08-16] MEDS: ENOXAPARIN 40 MG/0.4 ML SQ SCH (16:35)
[2019-08-16] MEDS: ENSURE CLEAR 200 ML CAN PO SCH (21:00)
[2019-08-16] MEDS: PARoxetine HCl 10 MG TAB PO SCH (22:09)
[2019-08-16] MEDS: DONEPEZIL HCL 5 MG TAB PO SCH (22:10)
--- NOTE | 2019-08-16 22:10 | PN ---
Chief Complaint: Feeling good. No chest pain, nausea, or vomiting. She coughs off and on, which is not unusual for her. Wheezing off and on again for years. Physical Examination: Vital Signs: Blood pressure 175/80, pulse is 84, temperature 98.5, afebrile for last 2 or 3 days. HEENT: No JVD. No carotid bruits. Chest: Decreased breath sounds. Minimal wheezing. Heart: Regular. Abdomen: No guarding, no rebound, no rigidity. Lab Examination: White count stays normal now for last 3 days, 10.1, which is 10,100. Hemoglobin 9.0, stable. Eosinophilia continues at 6.5%. Assessment And Plan: Pneumonia. Continue meropenem. Possible discharge tomorrow. She will be on Augmentin at discharge most likely. Hopefully, she will not need any more antibiotics IV. Insurance company has rejected transfer to [facility]. I offered for meropenem for about 10 days and they are refusing to do so. Clinically, she is stable but she may return with infection or hopefully not, but that is the plan so far. IRIS/BESSY Voice ID: [id number] Report ID: [id number] UMA
[2019-08-16] MEDS: QUETIAPINE 100MG TAB PO SCH (22:11)
[2019-08-17] MEDS: Meropenem 500 MG in NA CHLORIDE 0.9% 100 ML IV SCH ×2 (01:05→09:23)
[2019-08-17] MEDS: ALBUTEROL 2.5 MG/3 ML NEB SOL NEB SCH ×2 (02:00→08:05)
[2019-08-17] MEDS: LEVOTHYROXINE SOD 0.088 MG TAB PO SCH (05:38)
[2019-08-17] MEDS: QUETIAPINE 25 MG TAB PO SCH (05:39)
[2019-08-17 07:12] LABS: Absolute Lymphocytes (CBC) 1.4 K/uL (0.7-4.9); Basophils % 0.4 % (0-1.3); Hematocrit 26.9 % (36.0-45.0); MPV 8.9 fL (7.6-11.3); RBC Red Blood Cell Count 3.41 M/uL (3.86-4.86)
[2019-08-17] MEDS: ARFORMOTEROL TARTRATE 15 MCG/2 ML VIAL.NEB NEB SCH (08:05)
[2019-08-17 08:29] VITALS: O2SAT 92
[2019-08-17] MEDS: ENSURE CLEAR 200 ML CAN PO SCH (09:23)
[2019-08-17] MEDS: DULERA 100/5 (MOMETASONE/FORMOTEROL) INHALER IH SCH (09:23)
[2019-08-17 09:24] VITALS: BP 151/65; TEMP 98.1
[2019-08-17 10:05] LABS: Anisocytosis 1+; Blood Morphology Comment NOTED (NOT SEEN); Platelet Estimate ADEQ; Urine White Blood Cell Casts OK
[2019-08-17 10:06] LABS: Burr Cells 1+
--- NOTE | 2019-08-18 13:12 | DS ---
Date of Discharge: 08/17/2019 Final Diagnosis: Bacterial pneumonia, possible resistant to vancomycin and Levaquin. Secondary Diagnoses: Hypothyroidism, chronic bronchitis, and dementia. Hospital Course: Patient is an 83-year-old lady comes in with shortness of breath, coughing, weakness, wheezing, was found to have a white count of 24,000 , which on Levaquin, which did not work effectively, went to 29,000. At that time, I put her on vancomycin and meropenem and white count came down rapidly to teens. She did not grow anything in his sputum impressive so I had discontinued at that time meropenem and kept on vancomycin alone thinking this is from a [facility] status or a single living facility, she is at risk of MRSA and on vancomycin the white count improved over next few days but then started to go up again up to 17,000 from 11,000. At which time I discontinued both vancomycin and Levaquin and put her back on meropenem and on 4 to 5 days of meropenem the white count has gradually reduced down now to 9000. She has been feeling well for last 3 to [address] to [address] her in [facility] for about 2 weeks of meropenem. Patient completely refused to do so, refused to give permission to do so. I tried to call the insurance company's medical technologist microbiology, they never replied the phone call back to approve or disapprove this admission to [facility] and I am discharging her to [facility] on Augmentin 875 mg p.o. b.i.d. I hope she does not have recurrence of the infection. From the beginning the pneumonia was very small, but her symptoms of leukocytosis made me to treat her aggressively with meropenem as both vancomycin and Levaquin failed. Prognosis guarded. The patient's 2 daughters are at the bedside and I discussed with them. IRIS/BESSY Voice ID: [id number] Report ID: [id number] UMA
== END 2019-08-17 11:10 | disposition home or self-care (01) | DRG 871 ==
LOC: ER 12:52 → ERHOLD 15:21 → 2ND 18:01
PROVIDERS: ADMIT Internal Medicine; ATTEND Internal Medicine
DX: A41.02 Sepsis due to Methicillin resistant Staphylococcus aureus (principal); J15.212 Pneumonia due to Methicillin resistant Staphylococcus aureus; J90 Pleural effusion, not elsewhere classified; J42 Unspecified chronic bronchitis; E03.9 Hypothyroidism, unspecified; F41.9 Anxiety disorder, unspecified; G30.9 Alzheimer's disease, unspecified; F02.80 Dementia in other diseases classified elsewhere, unspecified severity, without behavioral disturbance, psychotic disturbance, mood disturbance, and anxiety
CPT/HCPCS: 36415; 71045; 71046; 71260; 74177; 80048; 80053; 80076; 80202; 81001; 81003; 81015; 82565; 83605; 83735; 83880; 84132; 84145; 84443; 84484; 85025; 85610; 87040; 87086; 87088; 87804; 93005; 94760; 96365; 97116; 97161; 99285; J0456; J1650; J2185; J3370; J7605; J7606; Q9967

== ENCOUNTER 2019-08-20 09:26 | Inpatient (IN) | payer OTHER ==
[2019-08-20 10:41] LABS: Arterial Blood Carboxyhemoglob 1.1 % (0-1.5); Blood Gas Oxyhemoglobin 86.5 % (94-97); Blood O2 Saturation 88.2 % (92-98.5)
[2019-08-20] MEDS ORDERED: NA CHLORIDE 0.9% 1,000 ML ONE (10:50)
--- NOTE | 2019-08-20 11:02 | RAD REPORT ---
EXAM DESCRIPTION: RAD - Chest Single View - 08/20/2019 10:48 am CLINICAL HISTORY: Cough, COPD, shortness of breath COMPARISON: August 11 TECHNIQUE: AP portable chest image was obtained 1042 hour . FINDINGS: Lung volumes are very low. Stranding in the right lung base matches comparison. This could be scarring or atelectasis. Shallow inspiration accentuates lung markings. Minimal edema or infiltra te cannot be excluded though lung markings are not clearly different from comparison. Large hiatal hernia again noted. Right-side PICC line has been removed. Heart and vasculature are normal. No measurable pleural effusion and no pneumothorax. No acute bony abnormality seen. No acute aortic findings suspected. IMPRESSION: Limited shallow inspiration film showing no change to the right base pleural and parench ymal opacification. Vasculature and lung markings are accentuated by portable technique and shallow inspiration. Signific ant failure or volume overload are not suspected.
[2019-08-20 11:13] LABS: Absolute Lymphocytes (CBC) 0.6 K/uL (0.7-4.9); Basophils % 0.6 % (0-1.3); Hematocrit 30.4 % (36.0-45.0); Lymphocytes % 5.8 % (15.3-44.8); MPV 9.2 fL (7.6-11.3); RBC Red Blood Cell Count 3.84 M/uL (3.86-4.86)
[2019-08-20 11:15] LABS: Protime INR 1.06
[2019-08-20 11:27] LABS: ALT/SGPT 9 U/L (12-78); AST/SGOT 10 U/L (15-37); Albumin 2.7 g/dL (3.4-5.0); Alkaline Phosphatase 91 U/L (45-117); BUN Blood Urea Nitrogen 10 mg/dL (7-18); Bicarbonate 28 mmol/L (21-32); Bilirubin Direct 0.1 mg/dL (0-0.2); Bilirubin Total 0.3 mg/dL (0.2-1.0); Glucose Level 73 mg/dL (74-106); NT PRO-BNP 461 pg/mL (<450); Potassium 3.7 mmol/L (3.5-5.1); Protein, Total 6.7 g/dL (6.4-8.2); Sodium Level 137 mmol/L (136-145); Troponin (Emerg Dept Use Only) < 0.02 ng/mL (0.0-0.045)
--- NOTE | 2019-08-20 12:16 | ER ---
Nurse's Notes [facility] Name: Ciara Moraes Age: 83 yrs Sex: Female : 1935 Arrival Date: 08/20/2019 Time: 09:32 Bed 14 Private MD: Diagnosis: Dyspnea;Hypoxemia;Chronic obstructive pulmonary disease with (acute) exacerbation Presentation: 08/20 09:32 Presenting complaint: EMS states: Shortness of breath, worsening this morning, O2 sat jl7 97% on RA. Transition of care: [facility]. Onset of symptoms was August 20, 2019. Risk Assessment: Do you want to hurt yourself or someone else? Patient reports no desire to harm self or others. Initial Sepsis Screen: Does the patient meet any 2 criteria? No. Patient's initial sepsis screen is negative. Does the patient have a suspected source of infection? No. Patient's initial sepsis screen is negative. Care prior to arrival: Glucose check: 116 Oxygen administered. via nasal cannula. 09:32 Method Of Arrival: EMS: [place] [id number] 09:32 Acuity: MERLIN 3 jl7 Triage Assessment: 09:37 General: Appears in no apparent distress. uncomfortable, Behavior is cooperative, jl7 anxious. Pain: Denies pain. EENT: No signs and/or symptoms were reported regarding the EENT system. Neuro: Level of Consciousness is awake, alert, obeys commands, Oriented to person, place, time, situation. Cardiovascular: Denies chest pain, Heart tones S1 S2 present Patient's skin is warm and dry. Respiratory: Reports shortness of breath at rest Airway is patent Respiratory effort is even, labored, Respiratory pattern is symmetrical, tachypnea Breath sounds are clear bilaterally. Onset: The symptoms/episode began/occurred "A long time ago.", the patient has mild shortness of breath. GI: No signs and/or symptoms were reported involving the gastrointestinal system. Patient currently denies constipation, diarrhea, nausea, vomiting. : Denies burning with urination. Derm: Skin is pink, warm \\T\\ dry. Musculoskeletal: No signs and/or symptoms reported regarding the musculoskeletal system. Historical: - Allergies: 09:37 NKA; jl7 - Home Meds: 09:37 donepezil 23 mg oral tab 1 tab once daily [Active]; Lasix 20 mg Oral tab 1 tab once jl7 daily [Active]; Synthroid 88 mcg oral tab [Active]; paroxetine HCl 40 mg oral tab 1 tab once daily [Active]; quetiapine 100 mg oral tab 1 tab [Active]; quetiapine 50 mg oral tab 1 tab [Active]; - PMHx: 09:37 Alzheimers; Hypothyroidism; jl7 - Immunization history:: Adult Immunizations up to date. - Social history:: Smoking status: Patient/guardian denies using tobacco. - Family history:: not pertinent. - Ebola Screening: : No symptoms or risks identified at this time. Screenin:54 Abuse screen: Denies threats or abuse. Denies injuries from another. Nutritional jl7 screening: No deficits noted. Tuberculosis screening: No symptoms or risk factors identified. Fall Risk Secondary diagnosis (15 points) Alzheimer's, IV access (20 points). Total Latham Fall Scale indicates Low Risk Score (25-44 pts). Fall prevention measures have been instituted. Side Rails Up X 2 Placed close to Nursing Station Frequent Obs/Assesments occuring Family Present and informed to notify staff if they need to leave bedside As available Patient and Family Educated on Fall Prevention Program and strategies. Assessment: 09:54 General: See triage assessment. Cardiovascular: Rhythm is sinus rhythm. jl7 Vital Signs: 09:37 BP 116 / 54; Pulse 84; Resp 20 S; Temp 98.1(O); Pulse Ox 97% on R/A; Pain 0/10; jl7 10:40 BP 113 / 53; Pulse 83; Resp 15; Temp 98.3(O); Pulse Ox 97% on 2 lpm NC; mh5 13:06 BP 114 / 82; Pulse 91; Resp 23 S; Temp 98.3(O); Pulse Ox 100% on 2 lpm NC; Weight 63.5 jl7 kg (R); ED Course: 09:32 Patient arrived in ED. jl7 09:34 Triage completed. jl7 09:36 Pito Moulton MD is Attending Physician. [facility] 09:37 Arm band placed on right wrist. jl7 09:50 Yamilka Araujo RN is Primary Nurse. jl7 09:54 Patient has correct armband on for positive identification. Placed in gown. Bed in low jl7 position. Call light in reach. Side rails up X2. awake overnight monitor on. Pulse ox on. NIBP on. Warm blanket given. 09:54 EKG done, by ED staff, reviewed by Pito Moulton MD. jl7 10:30 Inserted saline lock: 22 gauge in left antecubital area, using aseptic technique. Blood jl7 collected. 10:30 Initial lab(s) drawn, by me, sent to lab. First set of blood cultures drawn by me. jl7 10:41 Adult w/ patient. mh5 10:48 XRAY Chest (1 view) In Process Unspecified. EDMS 11:55 CT completed. Patient tolerated procedure well. Patient moved back from CT. kw1 11:55 CT Chest For PE Angio In Process Unspecified. EDMS 12:12 Chapo Delacruz MD is Hospitalizing Provider. [facility] 14:03 No provider procedures requiring assistance completed. Patient admitted, IV remains in jl7 place. intact, No redness/swelling at site. Administered Medications: 13:15 Drug: Xopenex 2.5 mg Route: Inhalation; jl7 14:02 Follow up: Response: No adverse reaction jl7 13:15 Drug: AtroVENT Aerosol 0.5 mg Route: Inhalation; jl7 14:03 Follow up: Response: No adverse reaction jl7 13:20 Drug: SOLU-Medrol 2 mg/kg Route: IVP; Site: left antecubital; jl7 14:02 Follow up: Response: No adverse reaction jl7 14:01 Drug: Zosyn 3.375 grams Route: IVPB; Infused Over: 60 mins; Site: left antecubital; jl7 14:02 Follow up: IV Status: Infusion continued upon admission jl7 14:01 Drug: Zithromax 500 mg Route: IVPB; Infused Over: 1 hrs; Site: left antecubital; jl7 14:02 Follow up: IV Status: Infusion continued upon admission jl7 14:02 Drug: NS 0.9% 1000 ml Route: IV; Rate: 125 ml/hr; Site: left antecubital; jl7 14:02 Follow up: IV Status: Infusion continued upon admission jl7 Outcome: 12:14 Decision to Hospitalize by Provider. jordyn 14:03 Admitted to Tele accompanied by tech, family with patient, via wheelchair, room 416, jl7 with oxygen, with chart, Report called to FLORIN Samson 14:03 Condition: stable 14:03 Discharge instructions given to patient, family, Instructed on the need for admit, Demonstrated understanding of instructions. 14:04 Patient left the ED. jl7 Signatures: Dispatcher [employer] Pito Langston MD MD cha Martinez, [facility] Yamilka Araujo RN RN Yu Chaidez1
--- NOTE | 2019-08-20 12:16 | EDPHYS ---
Physician Documentation [facility] Name: Ciara Moraes Age: 83 yrs Sex: Female : 1935 Arrival Date: 08/20/2019 Time: 09:32 Bed 14 Private MD: AYAD Physician Pito Moulton HPI: 08/20 10:07 This 83 yrs old Female presents to ER via EMS with complaints of Shortness Of jordyn Breath. 10:07 The patient has shortness of breath at rest, with light activity. Onset: The jordyn symptoms/episode began/occurred 1 day(s) ago. Duration: The symptoms are continuous, and are steadily getting worse. The patient's shortness of breath has no apparent modifying factors. Associated signs and symptoms: The patient has no apparent associated signs or symptoms. Severity of symptoms: At their worst the symptoms were mild in the emergency department the symptoms are unchanged. The patient has experienced similar episodes in the past, a few times. Historical: - Allergies: 09:37 NKA; jl7 - Home Meds: 09:37 donepezil 23 mg oral tab 1 tab once daily [Active]; Lasix 20 mg Oral tab 1 tab once jl7 daily [Active]; Synthroid 88 mcg oral tab [Active]; paroxetine HCl 40 mg oral tab 1 tab once daily [Active]; quetiapine 100 mg oral tab 1 tab [Active]; quetiapine 50 mg oral tab 1 tab [Active]; - PMHx: 09:37 Alzheimers; Hypothyroidism; jl7 - Immunization history:: Adult Immunizations up to date. - Social history:: Smoking status: Patient/guardian denies using tobacco. - Family history:: not pertinent. - Ebola Screening: : No symptoms or risks identified at this time. ROS: 10:07 Constitutional: Negative for fever, chills, and weight loss, Eyes: Negative for injury, jordyn pain, redness, and discharge, ENT: Negative for injury, pain, and discharge, Neck: Negative for injury, pain, and swelling, Cardiovascular: Negative for chest pain, palpitations, and edema, Abdomen/GI: Negative for abdominal pain, nausea, vomiting, diarrhea, and constipation, Back: Negative for injury and pain, : Negative for injury, bleeding, discharge, and swelling, MS/Extremity: Negative for injury and deformity, Skin: Negative for injury, rash, and discoloration, Neuro: Negative for headache, weakness, numbness, tingling, and seizure. 10:07 Respiratory: Positive for cough, shortness of breath, at rest. Exam: 10:09 Constitutional: This is a well developed, well nourished patient who is awake, alert, jordyn and in no acute distress. Head/Face: Normocephalic, atraumatic. Eyes: Pupils equal round and reactive to light, extra-ocular motions intact. Lids and lashes normal. Conjunctiva and sclera are non-icteric and not injected. Cornea within normal limits. Periorbital areas with no swelling, redness, or edema. ENT: Nares patent. No nasal discharge, no septal abnormalities noted. Tympanic membranes are normal and external auditory canals are clear. Oropharynx with no redness, swelling, or masses, exudates, or evidence of obstruction, uvula midline. Mucous membranes moist. Neck: Trachea midline, no thyromegaly or masses palpated, and no cervical lymphadenopathy. Supple, full range of motion without nuchal rigidity, or vertebral point tenderness. No Meningismus. Chest/axilla: Normal chest wall appearance and motion. Nontender with no deformity. No lesions are appreciated. Respiratory: Lungs have equal breath sounds bilaterally, clear to auscultation and percussion. No rales, rhonchi or wheezes noted. No increased work of breathing, no retractions or nasal flaring. Abdomen/GI: Soft, non-tender, with normal bowel sounds. No distension or tympany. No guarding or rebound. No evidence of tenderness throughout. Back: No spinal tenderness. No costovertebral tenderness. Full range of motion. Female : Normal external genitalia. Skin: Warm, dry with normal turgor. Normal color with no rashes, no lesions, and no evidence of cellulitis. MS/ Extremity: Pulses equal, no cyanosis. Neurovascular intact. Full, normal range of motion. Neuro: Awake and alert, GCS 15, oriented to person, place, time, and situation. Cranial nerves II-XII grossly intact. Motor strength 5/5 in all extremities. Sensory grossly intact. Cerebellar exam normal. Normal gait. Psych: Awake, alert, with orientation to person, place and time. Behavior, mood, and affect are within normal limits. 10:09 Cardiovascular: Rate: normal, Rhythm: irregular, Pulses: no pulse deficits are appreciated, Heart sounds: normal, Edema: is not appreciated, JVD: is not appreciated. Vital Signs: 09:37 BP 116 / 54; Pulse 84; Resp 20 S; Temp 98.1(O); Pulse Ox 97% on R/A; Pain 0/10; jl7 10:40 BP 113 / 53; Pulse 83; Resp 15; Temp 98.3(O); Pulse Ox 97% on 2 lpm NC; mh5 13:06 BP 114 / 82; Pulse 91; Resp 23 S; Temp 98.3(O); Pulse Ox 100% on 2 lpm NC; Weight 63.5 jl7 kg (R); MDM: 09:36 Patient medically screened. [facility] 10:10 Data reviewed: vital signs, nurses notes, lab test result(s), EKG, radiologic studies, jordyn plain films. 08/20 10:07 Order name: Basic Metabolic Panel; Complete Time: 11:38 [facility] 08/20 10:07 Order name: CBC with Diff; Complete Time: 11:38 [facility] 08/20 10:07 Order name: LFT's; Complete Time: 11:38 [facility] 08/20 10:07 Order name: Magnesium; Complete Time: 11:38 [facility] 08/20 10:07 Order name: NT PRO-BNP; Complete Time: 11:38 [facility] 08/20 10:07 Order name: PT-INR; Complete Time: 11:38 [facility] 08/20 10:07 Order name: Troponin (emerg Dept Use Only); Complete Time: 11:38 [facility] 08/20 10:07 Order name: XRAY Chest (1 view); Complete Time: 11:38 [facility] 08/20 10:07 Order name: Blood Culture Adult (2) [facility] 08/20 10:07 Order name: ABG: room air; Complete Time: 12:11 [facility] 08/20 10:11 Order name: TSH; Complete Time: 11:38 [facility] 08/20 10:11 Order name: D-Dimer; Complete Time: 11:38 [facility] 08/20 11:33 Order name: CT Chest For PE Angio; Complete Time: 12:51 ss 08/20 12:01 Order name: Urine Dipstick--Ancillary (enter results); Complete Time: 12:51 eb 08/20 10:07 Order name: EKG; Complete Time: 10:09 08/20 10:07 Order name: Cardiac monitoring; Complete Time: 10:44 08/20 10:07 Order name: EKG - Nurse/Tech; Complete Time: 10:11 08/20 10:07 Order name: IV Saline Lock; Complete Time: 10:44 08/20 10:07 Order name: Labs collected and sent; Complete Time: 10:45 08/20 10:07 Order name: O2 Per Protocol; Complete Time: 10:45 08/20 10:07 Order name: O2 Sat Monitoring; Complete Time: 10:45 08/20 10:07 Order name: Urine Dipstick-Ancillary (obtain specimen); Complete Time: 13:07 [facility] 08/20 12:23 Order name: CONS Physician Consult EDMS Administered Medications: 13:15 Drug: Xopenex 2.5 mg Route: Inhalation; 7 14:02 Follow up: Response: No adverse reaction jl7 13:15 Drug: AtroVENT Aerosol 0.5 mg Route: Inhalation; jl7 14:03 Follow up: Response: No adverse reaction jl7 13:20 Drug: SOLU-Medrol 2 mg/kg Route: IVP; Site: left antecubital; jl7 14:02 Follow up: Response: No adverse reaction jl7 14:01 Drug: Zosyn 3.375 grams Route: IVPB; Infused Over: 60 mins; Site: left antecubital; jl7 14:02 Follow up: IV Status: Infusion continued upon admission jl7 14:01 Drug: Zithromax 500 mg Route: IVPB; Infused Over: 1 hrs; Site: left antecubital; jl7 14:02 Follow up: IV Status: Infusion continued upon admission jl7 14:02 Drug: NS 0.9% 1000 ml Route: IV; Rate: 125 ml/hr; Site: left antecubital; jl7 14:02 Follow up: IV Status: Infusion continued upon admission jl7 Disposition: 08/20/19 12:14 Hospitalization ordered by Chapo Delacruz for Inpatient Admission. Preliminary diagnosis are Dyspnea, Hypoxemia, Chronic obstructive pulmonary disease with (acute) exacerbation. - Bed requested for Telemetry/MedSurg (Inpatient). - Status is Inpatient Admission. jl7 - Condition is Fair. - Problem is new. - Symptoms have improved. UTI on Admission? No Signatures: Dispatcher [employer] EDJessica Little RN RN dw Anderson, Corey, MD MD cha Leal, Jahala, RN RN jl7 Corrections: (The following items were deleted from the chart) 13:22 12:14 Hospitalization Ordered by Chapo Delacruz MD for Inpatient Admission. Preliminary dw diagnosis is Dyspnea; Hypoxemia; Chronic obstructive pulmonary disease with (acute) exacerbation. Bed requested for Telemetry/MedSurg (Inpatient). Status is Inpatient Admission. Condition is Fair. Problem is new. Symptoms have improved. UTI on Admission? No. jordyn 14:04 13:22 08/20/2019 12:14 Hospitalization Ordered by Chapo Delacruz MD for Inpatient jl7 Admission. Preliminary diagnosis is Dyspnea; Hypoxemia; Chronic obstructive pulmonary disease with (acute) exacerbation. Bed requested for Telemetry/MedSurg (Inpatient). Status is Inpatient Admission. Condition is Fair. Problem is new. Symptoms have improved. UTI on Admission? No. dw
[2019-08-20 12:25] LABS: Urine Blood NEGATIVE (NEG); Urine Glucose NEGATIVE (NEG); Urine Protein NEGATIVE (NEG); Urine Specific Gravity 1.015 (1.005-1.030)
--- NOTE | 2019-08-20 12:31 | RAD REPORT ---
EXAM DESCRIPTION: CT - Chest For Pe Angio - 08/20/2019 11:55 am CLINICAL HISTORY: DYSPNEA COMPARISON: Chest Angio dated 02/22/2018; Chest Single View dated 08/20/2019 TECHNIQUE: Dynamically enhanced 3 mm thick images of the chest were obtained during administration o f approximately 150mL Isovue 370 IV contrast. Coronal and oblique MIP reconstruction images were gene rated and reviewed. Exam utilizes a protocol to evaluate the pulmonary arterial tree. All CT scans are performed using dose optimization technique as appropriate and may include automated exposure control or mA/KV adjustment according to patient size. FINDINGS: No pulmonary emboli are identified. The aorta as imaged shows no acute or suspicious finding. No pericardial thickening or effusion. 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 No infiltrate or mass in the lung parenchyma. Large right pleural effusion is present. Partial atelec tasis of the right lower lobe noted. Interstitial markings are mildly prominent patient may have a un derlying mild interstitial edema. No mediastinal or hilar suspicious masses. A few small hilar lymph nodes are present, nonspecific. No chest wall mass or axillary lymphadenopathy. Moderately large hiatal hernia is present with a significant amount of stomach within the thorax. The cysts are present in the partially imaged liver similar to comparison. IMPRESSION: No pulmonary emboli identified. Large right pleural effusion with partial atelectasis right lower lobe. No mass or consolidations seen. Mild interstitial edema is suspected.
[2019-08-20] MEDS ORDERED: IPRATROPIUM BROM 0.5MG/2.5ML ONE (13:15)
[2019-08-20] MEDS ORDERED: METHYLPREDNISOLONE 125 MG INJ ONE (13:15)
[2019-08-20] MEDS ORDERED: PIPER/TAZO/NS 3.375gm 3.375 GM/100 ML BAG ONE (13:15)
[2019-08-20] MEDS ORDERED: LEVALBUTEROL 1.25 MG/3 ML NEB ONE (13:15)
[2019-08-20] MEDS ORDERED: AZITHROMYCIN IV 500 MG in NA CHLORIDE 0.9% 250 ML IVPB ONE (14:00)
--- NOTE | 2019-08-20 15:45 | P.HP ---
Certification for Inpatient Patient admitted to: Inpatient With expected LOS: >2 Midnights Practitioner: I am a practitioner with admitting privileges, knowledge of patient current condition, hospital course, and medical plan of care. Services: Services provided to patient in accordance with Admission requirements found in Title 42 Section 412.3 of the Code of Federal Regulations Patient History Date of Service: 08/20/19 Reason for admission: SHORT OF BREATH, LOW OXYGEN. History of Present Illness: MS. VARGHESE WAS SENT HOME AFTER RECENT ADMISSION FOR SEPSIS. SHE WAS WELL AT TIME OF DISCHARGE AND ABOUT 5 DAYS BEFORE. HER STAY ON LAST ADMISSION WAS FOR DYSPNEA , INITIAL WBC ELEVATION OF 15K OR SO AND FAILED TO IMPROVE ON LEVAQUIN, WENT TO 29K, I STARTED VANCOMYCIN AND MERREM AND IMPROVED DOWN TO A GOOD NUMMBER AND SO TO REDUCE FROM EXCESS ANTIBIOTICS I REDUCED DOWN TO LEVAQUIN AND VANCOMYCIN NO CULTURE GREW ANYTHING. FOR FIRST FEW DAYS SHE DID GREAT ON VANCOMYCIN BUT LATER WBC STARTED TO RISE SO I CHANGED TO MERREM FOR LAST FEW DAYS AND WBC CAME DOWN TO NORMAL. HER INSURANCE COMPANY REFUSED TO PAY FOR SNIF UNIT. I CALLED THE RELAY REPAIRER AND SHE NEVER RETURNED MY CALL. I KEPT HER HERE FOR FEW DAYS LONGER THAN USUAL I SUSPECTED SHE WILL GET SICKER AND COME BACK. I DID NOT SEE ANY THING MAJOR ON CT SCAN OF CHEST ABDOMEN AND PELVIS DONE ON LAST ADMISSION. SHE CAME BACK WITH HYPOXIA LIKE SUSPECTED SHE MAY. I ASKED ER TO DO CT PULMONARY ANGIOGRAM THAT IS NEGATIVE FOR PE BUT IS POSITIVE FOR NEW LARGE PLERURAL EFFUSION. I HAVE ORDERED DIAGNOSTIC AND THERAPEUTIC TAP. HER BNP IS NOT HIGH ENOUGH TO CALL THIS RELATED TO CHF. SHE HAS SEEN DR. APPLE BEFORE AND HE HAS RULED OUT COPD DOING PFTS BUT SHE HAS HAD SECOND HAND SMOKE AND SO SHE MAY HAVE SYMPTOMS OF COPD. SHE SAYS HER SMOKED HEAVY IN THE HOUSE. SHE ALSO HAS SEEN DR. COX AND CARDIAC ISSUES HAVE BEEN RULED OUT. Allergies No Known Allergies Allergy (Verified 10/22/16 17:12) Home Medications: Donepezil HCl 23 mg PO DAILY 08/03/19 Levothyroxine [Synthroid*] 88 mcg PO [id number] 08/03/19 Paroxetine HCl [Paxil] 40 mg PO BEDTIME 08/03/19 Quetiapine Fumarate [Seroquel] 50 mg PO [id number] 08/03/19 Quetiapine Fumarate [Seroquel] 100 mg PO BEDTIME 08/03/19 Amox/Clavulanate [Augmentin 875-125 Tab] 1 each PO BID #14 tab 08/17/19 - Past Medical/Surgical History Diabetic: No -: hypothyroidism -: alzhemiers -: hysterectomy -: appendectomy - Family History Brother -: Cancer Notes: alzhemiers Sister -: Cancer Notes: alzhemiers - Social History Alcohol use: No CD- Drugs: No Caffeine use: Yes Review of Systems 10-point ROS is otherwise unremarkable General: Weakness, Malaise Respiratory: Cough, Shortness of Breath Physical Examination - Vital Signs Temperature: 98.3 F Blood Pressure: 114/82 Pulse: 91 Respirations: 23 - Physical Exam General: Alert, Mild distress, Moderate distress HEENT: Atraumatic, PERRLA, Mucous membr. moist/pink, EOMI, Sclerae nonicteric Neck: Supple, 2+ carotid pulse no bruit, No LAD, Without JVD or thyroid abnormality Respiratory: Diminished Cardiovascular: Regular rate/rhythm, Normal S1 S2 Gastrointestinal: Normal bowel sounds, No tenderness Musculoskeletal: No tenderness Integumentary: No rashes Neurological: Normal gait, Normal speech, Normal strength at 5/5 x4 extr, Normal tone, Normal affect Lymphatics: No axilla or inguinal lymphadenopathy - Studies Laboratory Data (last 24 hrs) 08/20/19 10:40: PT 12.5, INR 1.06 08/20/19 10:40: WBC 9.7, Hgb 10.3 L, Hct 30.4 L, Plt Count 383 D 08/20/19 10:40: Sodium 137, Potassium 3.7, BUN 10, Creatinine 1.04, Glucose 73 L , Magnesium 2.0, Total Bilirubin 0.3, AST 10 L, ALT 9 L, Alkaline Phosphatase 91 Assessment and Plan - Problems (Diagnosis) (1) Hypoxia Current Visit: Yes Status: Acute Plan: THIS IS WORSE THAN BEFORE. LARGE PLEURAL EFFUSION MAY BE THE REASON FOR IT. (2) Pleural effusion Current Visit: Yes Status: Acute Plan: THIS LARGE EFFUSION CAN BE FROM INFECTION OF CANCER. IS SUPECT CHF TO BE REMTE POSSIBILITLY. HER D DIMER IS HIGH AND NEG FOR PE. WILL DO VENOUS DOPPLER. I HAVE ORDERED DIAGNOSTIC TAP. I HAVE SUSPCION THAT SHE MAY HAVE SECONDARY MALIGNACY AND THE TAP WILL HELP . THIS EFFUSION IS NEW COMPARED TO LAST CT SCAN. (3) Chronic dyspnea Current Visit: No Status: Chronic - Advance Directives Does patient have a Living Will: Yes Does patient have a Durable POA for Healthcare: Yes
[2019-08-20] MEDS ORDERED: ONDANSETRON 4 MG/2 ML VIAL IV PRN (15:48)
[2019-08-20] MEDS ORDERED: ALBUTEROL 2.5 MG/3 ML NEB SOL NEB PRN (15:48)
[2019-08-20] MEDS ORDERED: ACETAMINOPHEN 500 MG TAB PO PRN (15:48)
[2019-08-20] MEDS ORDERED: IPRATROPIUM BROM 0.5MG/2.5ML NEB PRN (15:48)
[2019-08-20] MEDS: PIPER/TAZO/NS 3.375gm 3.375 GM/100 ML BAG IVPB SCH (17:20)
[2019-08-20] MEDS: METHYLPREDNISOLONE 40 MG INJ IV SCH (17:22)
[2019-08-20 18:08] VITALS: BMI 56.2
--- NOTE | 2019-08-20 19:59 | RAD REPORT ---
EXAM DESCRIPTION: US - Extrem Venous W Compress Wesly - 08/20/2019 6:43 pm CLINICAL HISTORY: Leg pain and swelling COMPARISON: None. TECHNIQUE: Real-time sonographic evaluation of the bilateral lower extremity common femoral, superfi cial femoral, popliteal and posterior tibial veins was performed. FINDINGS: Normal compressibility, flow augmentation, phasic flow and spontaneous flow are identified in the left and right lower extremity common femoral, superficial femoral, popliteal and posterior t ibial veins. No intraluminal filling defects seen. IMPRESSION: No DVT in either lower extremity.
[2019-08-20] MEDS: FAMOTIDINE 20 MG/2 ML VIAL IV SCH (20:09)
[2019-08-20] MEDS ORDERED: PNEUMOCOCCAL VACCINE 0.5 ML IMVAC ONE (21:00)
[2019-08-20] MEDS ORDERED: METHYLPREDNISOLONE 40 MG INJ ONE (23:54)
[2019-08-21] MEDS: METHYLPREDNISOLONE 40 MG INJ IV SCH ×2 (00:02→09:00)
[2019-08-21] MEDS: PIPER/TAZO/NS 3.375gm 3.375 GM/100 ML BAG IVPB SCH ×2 (00:02→08:05)
--- NOTE | 2019-08-21 06:14 | EKG ---
Test Date: 2019-08-20 Test Time: 09:45:36 Supply Chain Specialist: BK MEASUREMENT RESULTS: Intervals: Rate: 91 UT: 192 QRSD: 78 QT: 342 QTc: 420 [place]: P: 57 UT: 192 QRS: 42 T: -34 INTERPRETIVE STATEMENTS: Normal sinus rhythm Septal infarct, age undetermined Abnormal ECG Compared to ECG 08/03/2019 13:07:14 Myocardial infarct finding now present ST (T wave) deviation no longer present Prolonged QT interval no longer present Electronically Signed On 08-21-19 06:14:17 CDT by Norbert Higuera
[2019-08-21] MEDS: QUETIAPINE 25 MG TAB PO SCH (08:00)
[2019-08-21] MEDS: ENOXAPARIN 40 MG/0.4 ML SQ SCH (08:06)
[2019-08-21] MEDS ORDERED: METHYLPREDNISOLONE 40 MG INJ IV SCH (09:00)
[2019-08-21] MEDS: FAMOTIDINE 20 MG/2 ML VIAL IV SCH (09:00)
[2019-08-21] MEDS ORDERED: ASPIRIN EC 81 MG TAB PO SCH (09:00)
[2019-08-21] MEDS ORDERED: FAMOTIDINE 20 MG/2 ML VIAL IV SCH (09:00)
[2019-08-21 09:12] LABS: Platelet Estimate ADEQ
--- NOTE | 2019-08-21 12:03 | P.CNS ---
Date of Consult: 08/21/19 Chief Complaint: Shortness of breath lower extremity edema History of Present Illness: Patient is 83 years of age with a history of dementia admitted with worsening dyspnea apparently she had a staph pneumonia that was treated patient complains of dyspnea on mild exertion he was admitted here discharged came back again no history of cough sputum hemoptysis or phlegm she did have pulmonary function test was normal secondhand tobacco exposure Allergies No Known Allergies Allergy (Verified 10/22/16 17:12) Home Medications: Donepezil HCl 23 mg PO DAILY 08/03/19 Levothyroxine [Synthroid*] 88 mcg PO [id number] 08/03/19 Paroxetine HCl [Paxil] 40 mg PO BEDTIME 08/03/19 Quetiapine Fumarate [Seroquel] 50 mg PO [id number] 08/03/19 Quetiapine Fumarate [Seroquel] 100 mg PO BEDTIME 08/03/19 - Past Medical/Surgical History Diabetic: No -: hypothyroidism -: alzhemiers -: hysterectomy -: appendectomy - Family History Brother Medical History: Cancer Notes: alzhemiers Sister Medical History: Cancer Notes: alzhemiers - Social History Smoking Status: Never smoker Alcohol use: No CD- Drugs: No Caffeine use: Yes Place of Residence: [place] Review of Systems 10-point ROS is otherwise unremarkable General: Weakness Respiratory: Shortness of Breath Physical Examination Temp Pulse Resp BP Pulse Ox 97.3 F 92 H 20 169/73 H 20 L 08/21/19 08:00 08/21/19 08:00 08/21/19 08:00 08/21/19 08:00 08/21/19 08:00 General: Alert, Oriented x3 HEENT: Atraumatic Neck: Supple Respiratory: Clear to auscultation bilaterally Cardiovascular: No edema, Normal S1 S2 Gastrointestinal: Normal bowel sounds, Soft and benign Musculoskeletal: No clubbing, No swelling Integumentary: No rashes, No breakdown - Problems (1) Respiratory failure Current Visit: Yes Status: Acute Plan: Patient is 83 years of age has a history of dyspnea on mild exertion became worse over the past 2 weeks patient has hypoxemia with respiratory alkalosis normal pulmonary function testing in the past chemistry shows elevated BNP mild microcytic anemia history obtained from daughter the pressure is elevated saturation 96% on room air echocardiogram in [address] scan shows significant right-sided pleural effusion not apparent on the chest x-ray patient schedule for a thoracentesis no evidence of interstitial lung disease bubbly diastolic dysfunction Dc antibiotics started patient on spironolactone and Lasix no pulmonary emboli Qualifiers: Chronicity: acute on chronic
[2019-08-21] MEDS ORDERED: FUROSEMIDE 20 MG/ 2ML VIAL IV ONE (12:04)
[2019-08-21] MEDS: SPIRONOLACTONE 25 MG TABLET PO SCH ×2 (12:18→20:44)
[2019-08-21 13:04] LABS: Appearance VERY TURBID (CLEAR); Body Fluid Source PLEURAL; Body Fluid WBC 2372 /mm^3; Color of fluid Red (COLORLESS)
--- NOTE | 2019-08-21 16:52 | ECHO ---
HEIGHT: 0 ft 5 in WEIGHT: 2 lb 0 oz DATE OF STUDY: 08/21/[address]: Tip Raymond MD 2-DIMENSIONAL: YES M.MODE: YES DOPPLER: YES COLOR FLOW: YES TDS: PORTABLE: DEFINITY: BUBBLE STUDY: DIAGNOSIS: SHORTNESS OF BREATH CARDIAC HISTORY: CATHERIZATION: NO SURGERY: NO PROSTHETIC VALVE: NO PACEMAKER: NO MEASUREMENTS (cm) DIASTOLIC (NORMALS) SYSTOLIC (NORMALS) IVSd 0.9 (0.6-1.2) LA Diam 3.9 (1.9-4.0) LVEF 60-65% LVIDd 4.2 (3.5-5.7) LVIDs 1.9 (2.0-3.5) %FS 55% LVPWd 0.9 (0.6-1.2) Ao Diam 2.2 (2.0-3.7) 2 DIMENSIONAL ASSESSMENT: RIGHT ATRIUM: NORMAL LEFT ATRIUM: NORMAL RIGHT VENTRICLE: NORMAL LEFT VENTRICLE: NORMAL TRICUSPID VALVE: NORMAL MITRAL VALVE: NORMAL PULMONIC VALVE: NORMAL AORTIC VALVE: NORMAL PERICARDIAL EFFUSION: NONE AORTIC ROOT: NORMAL LEFT VENTRICULAR WALL MOTION: NORMAL DOPPLER/COLOR FLOW: MILD MITRAL REGURGITATION AND TRICUSPID REGURGITATION. NORMAL RIGHT VENTRICULAR SYSTOLIC PRESSURE. COMMENTS: NORMAL TWO DIMENSIONAL ECHOCARDIOGRAM. MILD MITRAL REGURGITATION AND TRICUSPID REGURGITATION. TECHNOLOGIST: TERRY VIDALES
[2019-08-21] MEDS: PARoxetine HCl 10 MG TAB PO SCH (20:44)
[2019-08-21] MEDS: QUETIAPINE 100MG TAB PO SCH (20:44)
[2019-08-21] MEDS: DONEPEZIL HCL 5 MG TAB PO SCH (20:45)
--- NOTE | 2019-08-21 22:45 | PN ---
Subjective: Ms. Moraes is doing okay. She is stable. She is still short of breath and minimum talking on exertion. Physical Examination: Vital Signs: Blood pressure 147/63. HEENT: No JVD. No carotid bruits. Chest: Chest minimal diffuse wheezing. Heart: Regular. Abdomen: No guarding, no rebound, no rigidity. Laboratory Examination: Her echocardiogram is normal. Normal EF. ABG; pH of 7.49, pCO2 of 32, PO2 of 53, O2 saturation of 88% on room air. Assessment And Plan: 1.Right-sided loculated effusion. This could be empyema, this could be malignancy. Dr. Bangura did di agnostic thoracentesis today. It shows a white count of 23-72 and RBC of 58,939. Ferritin level is 56. Other reports of this thoracentesis, fluid are pending. 2.Recurrent infection versus malignancy. Cytology is pending. I talked to the family that she was given extensive amount of diagnostic evaluation and treatment for last visit. If she has loculated e ffusion which has developed from infection. This could be worse requiring her to have a thoracic rad geon, but she is demented. She has chronic medical issues, may not be a candidate for a VATS procedu re may be necessary at this point. On last admission, CAT scan did not show this loculated effusion and after being on antibiotics including meropenem for 7 days. Now, she is showing loculated effusio n, which is possibly recurred in her condition. If it is malignancy, then basically, there is no further treatment necessary for her age of 83 with dementia. The report will be available after week or so. IRIS/BESSY Voice ID: [id number] Report ID: [id number]
[2019-08-22] MEDS: QUETIAPINE 25 MG TAB PO SCH (06:01)
[2019-08-22] MEDS: LEVOTHYROXINE SOD 0.088 MG TAB PO SCH (06:01)
[2019-08-22 06:35] LABS: Potassium 3.1 mmol/L (3.5-5.1)
[2019-08-22] MEDS: ASPIRIN EC 81 MG TAB PO SCH (08:16)
[2019-08-22] MEDS: SPIRONOLACTONE 25 MG TABLET PO SCH ×2 (08:16→20:39)
[2019-08-22] MEDS: ENOXAPARIN 40 MG/0.4 ML SQ SCH (08:17)
--- NOTE | 2019-08-22 11:45 | RAD REPORT ---
EXAM DESCRIPTION: US GUIDED THORACENTESIS CLINICAL HISTORY: Right pleural effusion. COMPARISON: None. TECHNIQUE: Ultrasound guided thoracentesis. FINDINGS: The patient was referred for ultrasound guided diagnostic thoracentesis of a right pleural effusion. Informed consent was obtained and timeout was performed. The risk and benefits to the alternatives to the procedure were explained to the patient in detail. The patients coagulation perimeters were within acceptable limits. The patient was placed upright recumbent on the procedure stretcher. The posterior right back was prepped and draped in the usual sterile fashion. Utilizing aseptic technique the right pleural cavity was accessed utilizing ultrasound guidance and a 22 gauge needle. Approximately 25 mL of bloody pleural fluid was obtained. The fluid was sent for laboratory studies requested by the referring physician. The patient tolerated the procedure well and was returned to her room for continued monitoring. IMPRESSION: Successful ultrasound guided diagnostic thoracentesis right pleural cavity.
--- NOTE | 2019-08-22 12:52 | P.PN ---
Subjective Date of Service: 08/22/19 Chief Complaint: Shortness of breath No change since thoracentesis patient is still complaining of shortness of breath denies any chest pain no cough phlegm or fever Review of Systems General: Weakness Respiratory: Shortness of Breath Physical Examination - Vital Signs Temperature: 97.6 F Blood Pressure: 111/57 Pulse: 70 Respirations: 16 Pulse Ox (%): 98 - Physical Exam General: Alert, In no apparent distress, Oriented x3 Respiratory: Clear to auscultation bilaterally, Diminished (Diminished air entry on the right side) Cardiovascular: No edema, Regular rate/rhythm Assessment & Plan - Problems (Diagnosis) (1) Respiratory failure Current Visit: Yes Status: Acute Plan: Patient continues to complains of shortness of breath the normal echocardiogram now in negative fluid balance status post thoracentesis negative for malignant cells was a bloody aspirate repeat chest x-ray ordered body fluid differential Cardona does not show any predominance off I the lymphocytes and neutrophils most likely a chronic effusion there is no evidence of pulmonary embolism continue with LTAC tone ambulate Qualifiers: Chronicity: acute on chronic
[2019-08-22] MEDS: AMOX/K CLAV 875 MG TAB PO SCH ×2 (13:12→20:40)
--- NOTE | 2019-08-22 15:13 | RAD REPORT ---
EXAM DESCRIPTION: RAD - Chest Single View - 08/22/2019 2:02 pm CLINICAL HISTORY: Thoracentesis follow-up examination COMPARISON: August 20 portable chest examination, August 21 ultrasound thoracentesis imaging TECHNIQUE: AP portable chest image was obtained in both inspiration and expiration at approximately 1337 hours . FINDINGS: No pneumothorax is present. Lung parenchyma has not changed. No reaccumulation of pleural fluid. Trachea remains midline. No new left lung field finding. IMPRESSION: No pneumothorax is present on the right. No chest film finding to suspect rapid reaccumulation of pleural fluid.
--- NOTE | 2019-08-22 17:44 | PN ---
Subjective: Ms. Moraes is doing well. Does not have any chest pain, nausea, vomiting. She is short of breath at rest. This time, she came back to the hospital because of fever and now for the last few temperature checks, she has not had fever. She is on antibiotic, Zithromax, for this now. This fever happened while she was in [facility] while she was on Augmentin. After meropenem, I placed her on Jun mentin, hopefully that she will not return to the hospital, but she did return to hospital. She had a thoracentesis done by Dr. Bangura and a culture, which is pending. Assessment And Plan: Loculated effusion, rule out malignancy. Cytology report is back, no malignant cells identified. So, this effusion could be just from loculated infection. Currently, she is doing really good and I will just continue Augmentin, which she was on before. I do not see any reason wh y Augmentin did not work because in culture, she did not grow anything in the past since visit at the hospital. So, we will start her on Augmentin and see how she does by tomorrow, possible discharge ho me. The history is detailed well in the admission note. IRIS/BESSY Voice ID: [id number] Report ID: [id number]
[2019-08-22] MEDS: QUETIAPINE 100MG TAB PO SCH (20:39)
[2019-08-22] MEDS: DONEPEZIL HCL 5 MG TAB PO SCH (20:39)
[2019-08-22] MEDS: PARoxetine HCl 10 MG TAB PO SCH (20:40)
[2019-08-23] MEDS: QUETIAPINE 25 MG TAB PO SCH (05:24)
[2019-08-23] MEDS: LEVOTHYROXINE SOD 0.088 MG TAB PO SCH (05:25)
[2019-08-23 06:00] LABS: Absolute Lymphocytes (CBC) 2.4 K/uL (0.7-4.9); Basophils % 1.1 % (0-1.3); Hematocrit 28.7 % (36.0-45.0); Lymphocytes % 24.5 % (15.3-44.8); MPV 8.8 fL (7.6-11.3); RBC Red Blood Cell Count 3.66 M/uL (3.86-4.86)
[2019-08-23 06:23] LABS: Potassium 3.6 mmol/L (3.5-5.1)
[2019-08-23 07:58] VITALS: O2SAT 95
[2019-08-23] MEDS ORDERED: POTASSIUM CL SA 10 MEQ TAB PO ONE (08:00)
[2019-08-23] MEDS: ASPIRIN EC 81 MG TAB PO SCH (08:00)
[2019-08-23] MEDS: AMOX/K CLAV 875 MG TAB PO SCH (08:00)
[2019-08-23] MEDS: SPIRONOLACTONE 25 MG TABLET PO SCH (08:00)
[2019-08-23] MEDS: ENOXAPARIN 40 MG/0.4 ML SQ SCH (08:00)
[2019-08-23 08:01] VITALS: BP 163/83
[2019-08-23 09:46] VITALS: TEMP 97.8
[2019-08-23 11:55] LABS: Anisocytosis 1+; Blood Morphology Comment NOTED (NOT SEEN); Elliptocytes 1+; Platelet Estimate ADEQ; Urine White Blood Cell Casts OK
--- NOTE | 2019-08-23 21:46 | P.DS ---
Admission Date: 08/20/19 Discharge Date: 08/23/19 Disposition: ROUTINE DISCHARGE Discharge Condition: FAIR Reason for Admission: Shortness of breath - Problems (1) Hypoxia Status: Acute (2) Pleural effusion Status: Acute (3) Chronic dyspnea Status: Chronic Brief History of Present Illness: MS. VARGHESE WAS SENT HOME AFTER RECENT ADMISSION FOR SEPSIS. SHE WAS WELL AT TIME OF DISCHARGE AND ABOUT 5 DAYS BEFORE. HER STAY ON LAST ADMISSION WAS FOR DYSPNEA , INITIAL WBC ELEVATION OF 15K OR SO AND FAILED TO IMPROVE ON LEVAQUIN, WENT TO 29K, I STARTED VANCOMYCIN AND MERREM AND IMPROVED DOWN TO A GOOD NUMMBER AND SO TO REDUCE FROM EXCESS ANTIBIOTICS I REDUCED DOWN TO LEVAQUIN AND VANCOMYCIN NO CULTURE GREW ANYTHING. FOR FIRST FEW DAYS SHE DID GREAT ON VANCOMYCIN BUT LATER WBC STARTED TO RISE SO I CHANGED TO MERREM FOR LAST FEW DAYS AND WBC CAME DOWN TO NORMAL. HER INSURANCE COMPANY REFUSED TO PAY FOR [facility]. I CALLED THE EMERGENCY ROOM REGISTERED NURSE AND SHE NEVER RETURNED MY CALL. I KEPT HER HERE FOR FEW DAYS LONGER THAN USUAL I SUSPECTED SHE WILL GET SICKER AND COME BACK. I DID NOT SEE ANY THING MAJOR ON CT SCAN OF CHEST ABDOMEN AND PELVIS DONE ON LAST ADMISSION. SHE CAME BACK WITH HYPOXIA LIKE SUSPECTED SHE MAY. I ASKED ER TO DO CT PULMONARY ANGIOGRAM THAT IS NEGATIVE FOR PE BUT IS POSITIVE FOR NEW LARGE PLERURAL EFFUSION. I HAVE ORDERED DIAGNOSTIC AND THERAPEUTIC TAP. HER BNP IS NOT HIGH ENOUGH TO CALL THIS RELATED TO CHF. SHE HAS SEEN DR. APPLE BEFORE AND HE HAS RULED OUT COPD DOING PFTS BUT SHE HAS HAD SECOND HAND SMOKE AND SO SHE MAY HAVE SYMPTOMS OF COPD. SHE SAYS HER SMOKED HEAVY IN THE HOUSE. SHE ALSO HAS SEEN DR. COX AND CARDIAC ISSUES HAVE BEEN RULED OUT. Hospital Course: MS. VARGHESE HAD LOCULATD EFFUSION THAT HAS BEEN DRAINED. CULTURE DID NOT GROW ANYTHING YET. CYTOLOGY IS NEGATIVE FOR CANCER. SHE HAS NOT HAD FEVER IN THE HOSPITAL. SHE CHRONICALLY STAYS DYSPNEIC. STABLE FOR DC. Vital Signs/Physical Exam: Temp Pulse Resp BP Pulse Ox 97.8 F 75 16 163/83 H 97 08/23/19 08:00 08/23/19 08:00 08/23/19 08:00 08/23/19 08:00 08/23/19 08:00 Laboratory Data at Discharge: WBC 9.7 K/uL (4.3-10.9) 08/23/19 05:42 Hgb 10.0 g/dL (12.0-15.0) L 08/23/19 05:42 Hct 28.7 % (36.0-45.0) L 08/23/19 05:42 Plt Count 408 K/uL (152-406) H 08/23/19 05:42 PT 12.5 SECONDS (9.5-12.5) 08/20/19 10:40 INR 1.06 08/20/19 10:40 Sodium 138 mmol/L (136-145) 08/23/19 05:42 Potassium 3.6 mmol/L (3.5-5.1) 08/23/19 05:42 BUN 11 mg/dL (7-18) 08/23/19 05:42 Creatinine 0.82 mg/dL (0.55-1.3) 08/23/19 05:42 Glucose 79 mg/dL (74-106) 08/23/19 05:42 Magnesium 2.0 mg/dL (1.8-2.4) 08/20/19 10:40 Total Bilirubin 0.3 mg/dL (0.2-1.0) 08/20/19 10:40 AST 10 U/L (15-37) L 08/20/19 10:40 ALT 9 U/L (12-78) L 08/20/19 10:40 Alkaline Phosphatase 91 U/L (45-117) 08/20/19 10:40 Troponin I < 0.02 ng/mL (0.0-0.045) 08/20/19 20:00 Home Medications: Donepezil HCl 23 mg PO DAILY 08/03/19 Levothyroxine [Synthroid*] 88 mcg PO [id number] 08/03/19 Paroxetine HCl [Paxil] 40 mg PO BEDTIME 08/03/19 Quetiapine Fumarate [Seroquel] 50 mg PO [id number] 08/03/19 Quetiapine Fumarate [Seroquel] 100 mg PO BEDTIME 08/03/19 Amox/Clavulanate [Augmentin 875-125 Tab*] 875 mg PO BID tab 08/23/19 Spironolactone 50 mg PO DAILY #90 tablet 08/23/19 New Medications: Spironolactone 50 mg PO DAILY #90 tablet Patient Discharge Instructions: SHE HAS AUGMENTIN AT [facility]- CONTINUE THAT UNTIL FINISHED. DOES SHE HAVE NEBULIZER? IF NOT I WILL SEND ORDER TO [facility] TO [place] [facility] FROM IT IS THE LEAST [place] WITH MEDICARE TO GO THROUGH [facility]. OXYGEN WILL DEPEND ON HER LEVEL TODAY. CYTOLOGY IS NEGATIVE FOR CANCER. CULURES ARE PENDING. SHE HAS HAD NO FEVER WHILE HERE. Diet: AHA
== END 2019-08-23 11:45 | disposition home or self-care (01) | DRG 186 ==
LOC: ER 09:26 → ERHOLD 12:18 → 4TH 13:49 → UNDODISIN 22:36
PROVIDERS: ADMIT Internal Medicine; ATTEND Internal Medicine
PROC: 0W993ZX Drainage of Right Pleural Cavity, Percutaneous Approach, Diagnostic (ICD-10-PCS; principal; 2019-08-21)
DX: J90 Pleural effusion, not elsewhere classified (principal); J96.21 Acute and chronic respiratory failure with hypoxia; E87.3 Alkalosis; J44.9 Chronic obstructive pulmonary disease, unspecified; E03.9 Hypothyroidism, unspecified; G30.9 Alzheimer's disease, unspecified; F02.80 Dementia in other diseases classified elsewhere, unspecified severity, without behavioral disturbance, psychotic disturbance, mood disturbance, and anxiety; Z77.22 Contact with and (suspected) exposure to environmental tobacco smoke (acute) (chronic)
CPT/HCPCS: 32555; 36415; 71045; 71275; 80048; 80076; 81003; 82728; 82805; 83735; 83880; 84443; 84484; 85025; 85049; 85379; 85610; 87015; 87040; 87070; 87116; 87206; 88108; 88305; 89050; 93005; 93306; 93970; 94760; 96374; 96375; 97112; 97116; 97161; 99285; J0456; J1650; J1940; J2543; J2920; J2930; J7030; Q9967

== ENCOUNTER 2019-11-01 00:59 | Emergency (ER) | payer OTHER ==
[2019-11-01] MEDS ORDERED: ZIPRASIDONE MESYLA 20 MG/VIAL IM ONE (01:06)
[2019-11-01] MEDS ORDERED: WATER FOR INJ,STERILE 10 ML ONE (01:06)
[2019-11-01] MEDS ORDERED: NA CHLORIDE 0.9% 500 ML ONE (01:50)
[2019-11-01 02:44] LABS: Protime INR 0.99
[2019-11-01 02:45] LABS: Absolute Lymphocytes (CBC) 2.1 K/uL (0.7-4.9); Basophils % 0.5 % (0-1.3); Hematocrit 28.6 % (36.0-45.0); MPV 9.8 fL (7.6-11.3); RBC Red Blood Cell Count 3.76 M/uL (3.86-4.86)
[2019-11-01 02:53] LABS: Barbiturates NEGATIVE (NEGATIVE); Benzodiazepines NEGATIVE (NEGATIVE); Cocaine NEGATIVE (NEGATIVE); METHAMPHETAM NEGATIVE (NEGATIVE); Methadone NEGATIVE (NEGATIVE); Opiates NEGATIVE (NEGATIVE); Phencyclidine NEGATIVE (NEGATIVE); THC Cannibis NEGATIVE (NEGATIVE)
[2019-11-01 02:54] LABS: Urine Bacteria <20 /HPF (<20); Urine Culture Reflex Order REFLEXED; Urine RBC <5 /HPF (NONE SEEN)
[2019-11-01 02:56] LABS: ALT/SGPT 14 U/L (12-78); AST/SGOT 13 U/L (15-37); Albumin 3.2 g/dL (3.4-5.0); Alkaline Phosphatase 74 U/L (45-117); BUN Blood Urea Nitrogen 13 mg/dL (7-18); Bicarbonate 26 mmol/L (21-32); Bilirubin Direct 0.1 mg/dL (0-0.2); Bilirubin Total 0.3 mg/dL (0.2-1.0); Glucose Level 105 mg/dL (74-106); Magnesium 2.3 mg/dL (1.8-2.4); NT PRO-BNP 571 pg/mL (<450); Potassium 3.8 mmol/L (3.5-5.1); Protein, Total 6.4 g/dL (6.4-8.2); Sodium Level 133 mmol/L (136-145); Troponin (Emerg Dept Use Only) < 0.02 ng/mL (0.0-0.045)
[2019-11-01 03:45] LABS: Urine Blood NEGATIVE (NEG); Urine Glucose NEGATIVE (NEG); Urine Protein NEGATIVE (NEG); Urine Specific Gravity 1.015 (1.005-1.030)
[2019-11-01] MEDS ORDERED: LORazepam 2 MG/ML VIAL ONE (04:37)
--- NOTE | 2019-11-01 05:59 | EKG ---
Test Date: 2019-11-01 Test Time: 01:20:53 Casting Inspector: NISA MEASUREMENT RESULTS: Intervals: Rate: 78 VA: 198 QRSD: 78 QT: 396 QTc: 451 [place]: P: 42 VA: 198 QRS: 24 T: 23 INTERPRETIVE STATEMENTS: Normal sinus rhythm Low voltage QRS Cannot rule out Anterior infarct, age undetermined Abnormal ECG Compared to ECG 08/20/2019 09:45:36 Low QRS voltage now present Myocardial infarct finding still present Electronically Signed On 11-01-19 05:58:53 SENIOR APPLICATIONS ARCHITECT by Norbert Higuera
[2019-11-01] MEDS ORDERED: CEFTRIAXONE/SWI 1gm 1 GM/10 ML SYR ONE (06:39)
--- NOTE | 2019-11-01 07:32 | EDPHYS ---
Physician Documentation [facility] Name: Ciara Moraes Age: 84 yrs Sex: Female : 1935 Arrival Date: 11/01/2019 Time: 01:04 Bed 3 Private MD: ED Physician Benny Her HPI: 11/01 07:17 This 84 yrs old Female presents to ER via EMS with complaints of Altered wa Mental Status. 07:17 The patient presents with agitation, confusion, combative behavior. Onset: The wa symptoms/episode began/occurred today. Possible causes: unknown. Possible causes: pt w/ h/o dementia. Associated signs and symptoms: Pertinent positives: agitation, combativeness, confusion, Pertinent negatives: abdominal pain. Current symptoms: In the emergency department the patient's symptoms are unchanged from the initial presentation. Patient's baseline: Neuro: alert but confused, Motor: no deficits, Ambulation: walks without assistance, Speech: normal, The patient has a previous history of dementia. It is unknown whether or not the patient has had similar symptoms in the past. The patient has been recently seen by a physician: the patient's primary care provider. brought in for combative behavior. AMS. 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 - Social history:: Smoking status: unknown. - Ebola Screening: : No symptoms or risks identified at this time. - Family history:: not pertinent. - Hospitalizations: : No recent hospitalization is reported. ROS: 07:21 Constitutional: Negative for fever, chills, and weight loss, Eyes: Negative for injury, wa pain, redness, and discharge, ENT: Negative for injury, pain, and discharge, Neck: Negative for injury, pain, and swelling, Cardiovascular: Negative for chest pain, palpitations, and edema, Respiratory: Negative for shortness of breath, cough, wheezing, and pleuritic chest pain, Abdomen/GI: Negative for abdominal pain, nausea, vomiting, diarrhea, and constipation, Back: Negative for injury and pain, : Negative for injury, bleeding, discharge, and swelling, MS/Extremity: Negative for injury and deformity, Skin: Negative for injury, rash, and discoloration. 07:21 Neuro: Positive for altered mental status, Negative for dizziness, gait disturbance, headache, hearing loss, numbness. 07:21 All other systems are negative. Exam: 07:22 Constitutional: This is a well developed, well nourished patient who is awake, alert, wa and in no acute distress. Head/Face: Normocephalic, atraumatic. Eyes: Pupils equal round and reactive to light, extra-ocular motions intact. Lids and lashes normal. Conjunctiva and sclera are non-icteric and not injected. Cornea within normal limits. Periorbital areas with no swelling, redness, or edema. ENT: Nares patent. No nasal discharge, no septal abnormalities noted. Tympanic membranes are normal and external auditory canals are clear. Oropharynx with no redness, swelling, or masses, exudates, or evidence of obstruction, uvula midline. Mucous membranes moist. Neck: Trachea midline, no thyromegaly or masses palpated, and no cervical lymphadenopathy. Supple, full range of motion without nuchal rigidity, or vertebral point tenderness. No Meningismus. Chest/axilla: Normal chest wall appearance and motion. Nontender with no deformity. No lesions are appreciated. Cardiovascular: Regular rate and rhythm with a normal S1 and S2. No gallops, murmurs, or rubs. Normal PMI, no JVD. No pulse deficits. Respiratory: Lungs have equal breath sounds bilaterally, clear to auscultation and percussion. No rales, rhonchi or wheezes noted. No increased work of breathing, no retractions or nasal flaring. Abdomen/GI: Soft, non-tender, with normal bowel sounds. No distension or tympany. No guarding or rebound. No evidence of tenderness throughout. Back: No spinal tenderness. No costovertebral tenderness. Full range of motion. Skin: Warm, dry with normal turgor. Normal color with no rashes, no lesions, and no evidence of cellulitis. MS/ Extremity: Pulses equal, no cyanosis. Neurovascular intact. Full, normal range of motion. 07:22 Neuro: Orientation: combative. does not answer questions appropriately, Cranial nerves: grossly normal, Motor: is normal. 07:24 Psych: Behavior/mood is aggressive, angry, Affect is animated, Patient has no wa thoughts/intents to harm self or others. Judgement / Insight is impaired. Delusions/hallucinations are present and described as . Vital Signs: 01:09 BP 134 / 97; Pulse 85; Resp 18; Temp 98.5; Pulse Ox 94% on R/A; Weight 61.23 kg (R); ak1 Height 5 ft. 4 in. (162.56 cm) (R); Pain 0/10; 01:41 BP 160 / 62; Pulse 82; Resp 24; Pulse Ox 100% on 2 lpm NC; ak1 01:54 BP 133 / 80; Pulse 73; Resp 22; Pulse Ox 100% on 2 lpm NC; ak1 02:30 BP 99 / 79; Pulse 92; Resp 20; Pulse Ox 99% on 2 lpm NC; ak1 03:17 BP 146 / 66; Pulse 74; Resp 22; Pulse Ox 97% on 2 lpm NC; ak1 04:17 BP 149 / 83; Pulse 71; Resp 20; Pulse Ox 100% on 2 lpm NC; ak1 05:36 BP 167 / 74; Pulse 72; Resp 22; Pulse Ox 97% on 2 lpm NC; ak1 06:29 BP 132 / 99; Pulse 70; Resp 24; Temp 98.3; Pulse Ox 94% on 2 lpm NC; ak1 07:28 BP 130 / 84; Pulse 69; Resp 18; Pulse Ox 99% on 2 lpm NC; ph 08:27 BP 132 / 99; Pulse 77; Resp 17; Pulse Ox 97% on R/A; tw2 09:30 BP 128 / 77; Pulse 76; Resp 17; Pulse Ox 97% on R/A; tw2 10:49 BP 168 / 84; Pulse 65; Resp 18; Pulse Ox 100% on R/A; tw2 11:46 BP 149 / 96; Pulse 66; Resp 18; Pulse Ox 97% on 2 lpm NC; ph 13:00 BP 164 / 87; Pulse 68; Resp 18; Pulse Ox 97% on 2 lpm NC; ph 14:00 BP 127 / 57; Pulse 66; Resp 17; Pulse Ox 100% on R/A; tw2 15:00 BP 127 / 53; Pulse 89; Resp 16; Temp 98.3(O); Pulse Ox 98% on 2 lpm NC; tw2 16:00 BP 125 / 50; Pulse 87; Resp 22; Pulse Ox 100% on R/A; tw2 01:09 Body Mass Index 23.17 (61.23 kg, 162.56 cm) ak1 06:29 pt appears to be sleeping with mouth breathing. ak1 MDM: 01:05 Patient medically screened. wa 07:25 Differential Diagnosis: CVA, electrolyte abnormality, hypoglycemia, overdose, UTI. Data ms reviewed: vital signs, nurses notes. 07:27 Test interpretation: by ED physician or midlevel provider: labs noted for 5-10 wbc on wa UA with epithelial cells. BNP 571. anemia. . Medical screen evaluation completed. [facility] emergency medical condition absent. Response to treatment: the patient's symptoms have mildly improved after treatment. Physician consultation: Chapo Delacruz MD. Admission orders: after a detailed discussion of the patient's condition and case, the admit orders are written by id. 07:36 Test interpretation: by ED physician or midlevel provider: EKG: HR 78. nml sinus. low wa QRS. diffuse ST-T changes. nml axis. CT brain. no acute process. 09:34 ED course: D/w Dr. Delacruz. He requested that we attempt transfer of the patient to [facility]/Psych at [place]. The daughter was aware and agreeable to the transfer. 15:11 ED course: The patinet remains stable and without any needed intervention. [facility] 11/01 01:07 Order name: Basic Metabolic Panel; Complete Time: 04:34 ms 11/01 01:07 Order name: CBC with Diff; Complete Time: 04:34 ms 11/01 01:07 Order name: LFT's; Complete Time: 04:34 ms 11/01 01:07 Order name: Magnesium; Complete Time: 04:35 ms 11/01 01:07 Order name: NT PRO-BNP; Complete Time: 04:34 ms 11/01 01:07 Order name: PT-INR; Complete Time: 04:35 ms 11/01 01:07 Order name: Troponin (emerg Dept Use Only); Complete Time: 04:35 ms 11/01 01:07 Order name: UDS; Complete Time: 04:34 ms 11/01 01:07 Order name: Urine Microscopic Only; Complete Time: 04:35 ms 11/01 02:56 Order name: Urine Culture EDSD 11/01 03:04 Order name: Urine Dipstick--Ancillary (enter results) [facility] 11/01 07:37 Order name: Basic Metabolic Panel EDSD 11/01 07:37 Order name: CBC with Automated Diff EDSD 11/01 01:07 Order name: XRAY Chest (1 view); Complete Time: 16:42 ms 11/01 01:07 Order name: EKG; Complete Time: 01:08 ms 11/01 01:07 Order name: Cardiac monitoring; Complete Time: 01:30 ms 11/01 01:07 Order name: EKG - Nurse/Tech; Complete Time: 01:30 ms 11/01 01:07 Order name: IV Saline Lock; Complete Time: 01:55 ms 11/01 01:07 Order name: Labs collected and sent; Complete Time: 01:55 ms 11/01 01:07 Order name: O2 Per Protocol; Complete Time: 01:30 ms 11/01 01:07 Order name: O2 Sat Monitoring; Complete Time: 01:30 ms 11/01 01:07 Order name: Head Brain Wo Cont CT; Complete Time: 16:42 ms 11/01 07:37 Order name: Regular EDMS 11/01 01:07 Order name: Urine Dipstick-Ancillary (obtain specimen); Complete Time: 03:11 ms Administered Medications: 01:09 Drug: Geodon 10 mg Route: IM; Site: right vastus lateralis; ak1 01:46 Follow up: Response: No adverse reaction ak1 01:45 Drug: NS 0.9% 500 ml Route: IV; Rate: bolus; Site: right antecubital; cc3 02:20 Follow up: Response: No adverse reaction; IV Status: Completed infusion; IV Intake: cc3 500ml 02:36 Drug: Geodon 10 mg Route: IM; Site: left gluteus; ak1 03:10 Follow up: Response: No adverse reaction cc3 04:45 Drug: Ativan 1 mg Route: IVP; Site: right antecubital; aa1 04:59 Follow up: Response: No adverse reaction; RASS: Drowsy (-1) ak1 06:45 Drug: Rocephin - (cefTRIAXone) 1 grams Route: IVPB; Infused Over: 30 mins; Site: right ak1 antecubital; Disposition: 11/01/19 16:11 Transfer ordered to Psych Facility. Diagnosis is Acute AMS, aggitation. - Reason for transfer: Higher level of care. - Accepting physician is Dr. Javed Last/Psych. - Condition is Fair. - Problem is an acute exacerbation. - Symptoms have improved. Signatures: Dispatcher [employer] EDMS Danielle Thompson Alissa, RN RN aa1 Benny Her MD MD kdr Williams, Irene, RN RN Tejal Cobb RN RN ak1 Cathie Dee RN RN tw2 Kyler Oliveros MD MD wa Aguilar, Jose, RN RN ja1 Esther Stephen cc3 Corrections: (The following items were deleted from the chart) 07:59 07:30 Hospitalization Ordered by Chapo Delacruz MD for Inpatient Admission. Preliminary bd diagnosis is acute AMS; agitation. Bed requested for Telemetry/MedSurg (Inpatient). Status is Inpatient Admission. Condition is Stable. Problem is new. Symptoms have improved. UTI on Admission? Yes. ms 08:20 07:59 11/01/2019 07:30 Hospitalization Ordered by Chapo Delacruz MD for Inpatient bd Admission. Preliminary diagnosis is acute AMS; agitation. Bed requested for Telemetry/MedSurg (Inpatient). Status is Inpatient Admission. Condition is Stable. Problem is new. Symptoms have improved. UTI on Admission? Yes. bd 13:12 08:20 11/01/2019 07:30 Hospitalization Ordered by Chapo Delacruz MD for Inpatient ja1 Admission. Preliminary diagnosis is acute AMS; agitation. Bed requested for Telemetry/MedSurg (Inpatient). Status is Inpatient Admission. Condition is Stable. Problem is new. Symptoms have improved. UTI on Admission? Yes. bd 13:40 13:12 11/01/2019 07:30 Hospitalization Ordered by Chapo Delacruz MD for Inpatient iw Admission. Preliminary diagnosis is acute AMS; agitation. Bed requested for Telemetry/MedSurg (Inpatient). Status is Inpatient Admission. Condition is Stable. Problem is new. Symptoms have improved. UTI on Admission? Yes. ja1 16:08 13:40 11/01/2019 07:30 Hospitalization Ordered by Chapo Delacruz MD for Inpatient kdr Admission. Preliminary diagnosis is acute AMS; agitation. Bed requested for Telemetry/MedSurg (Inpatient). Status is Inpatient Admission. Condition is Stable. Problem is new. Symptoms have improved. UTI on Admission? Yes. iw 16:16 16:11 11/01/2019 16:11 Transfer ordered to Psych Facility. Diagnosis is Acute AMS, tw2 aggitation. Reason for transfer: Higher level of care. Accepting physician is Dr. Javed Last/Psych. Condition is Fair. Problem is an acute exacerbation. Symptoms have improved. kdr
--- NOTE | 2019-11-01 07:32 | ER ---
Nurse's Notes [facility] Name: Ciara Moraes Age: 84 yrs Sex: Female : 1935 Arrival Date: 11/01/2019 Time: 01:04 Bed 3 Private MD: Diagnosis: Acute AMS, aggitation Presentation: 11/01 01:00 Presenting complaint: EMS states: they were called to [facility] for combative resident. ak1 EMS reported pt hit her head on the wall. pt arrived swinging her arms, trying to bite, trying to crawl from the stretcher and bed. wheezing noted upon arrival. Transition of care: patient was received from another setting of care (long-term care facility), [facility]. Onset of symptoms was November 01, 2019. Risk Assessment: Do you want to hurt yourself or someone else? Patient reports no desire to harm self or others. Initial Sepsis Screen: Does the patient have a suspected source of infection? No. Patient's initial sepsis screen is negative. 01:00 Method Of Arrival: EMS: [facility] ak1 01:15 Note Halina at [facility] contacted. Halina stated pt did not hit her head. Halina ak1 stated pt came from her room to the [facility] staying she had a nightmare. pt was calm and walked to back to her room and then became violent. 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 pt daughter took pt to Dr. Delacruz yesterday where pt was prescribed Memantine HCL 5mg but has yet to start medication. Halina stated pt is normally A\\T\\OX3 and ambulatory. 01:23 Care prior to arrival: None. ak1 01:23 Acuity: MERLIN 2 ak1 01:46 Initial Sepsis Screen: Does the patient meet any 2 criteria? No. Patient's initial ak1 sepsis screen is negative. Triage Assessment: 01:00 General: Appears distressed, uncomfortable, well groomed, Behavior is anxious, ak1 combative, restless, uncooperative. General: pt combative and trying to bite and hit. pt with repetitive words and motions upon arrival. . Pain: Denies pain. EENT: No signs and/or symptoms were reported regarding the EENT system. Neuro: Level of Consciousness is awake, alert, confused, Oriented to person, Shoe Dresser are equal bilaterally Moves all extremities. Full function Speech is normal, Facial symmetry appears normal. Cardiovascular: No deficits noted. Respiratory: Airway is patent Respiratory effort is unlabored, Breath sounds with wheezes. GI: No signs and/or symptoms were reported involving the gastrointestinal system. : No signs and/or symptoms were reported regarding the genitourinary system. Derm: No signs and/or symptoms reported regarding the dermatologic system. Musculoskeletal: No signs and/or symptoms reported regarding the musculoskeletal system. 01:39 General: Appears in no apparent distress. comfortable, Behavior is calm, cooperative. ak1 Historical: - Allergies: 01:45 bisphosponates; ak1 01:45 Trazodone; ak1 01:45 raloxifiene; ak1 01:45 Myrbetriq; ak1 - Home Meds: 01:45 donepezil 23 mg Oral tab 1 tab once daily [Active]; Synthroid 88 mcg Oral tab [Active]; ak1 paroxetine HCl 40 mg Oral tab 1 tab once daily [Active]; quetiapine 100 mg Oral tab 1 tab [Active]; quetiapine 50 mg Oral tab 1 tab [Active]; spironolactone 50 mg Oral tab 1 tab once daily [Active]; Symbicort 160-4.5 mcg/actuation inhalation HFAA 2 puffs 2 times per day [Active]; 01:45 memantine 5 mg oral tab 1 tabs 2 times per day for Moderate to Severe Alzheimer's Type ak1 Dementia [Active]; - PMHx: 01:45 Alzheimers; Hypothyroidism; ak1 - PSHx: 01:45 Unable to obtain; ak1 - Immunization history:: Adult Immunizations up to date. - Social history:: Smoking status: unknown. - Ebola Screening: : No symptoms or risks identified at this time. - Family history:: not pertinent. - Hospitalizations: : No recent hospitalization is reported. Screenin:45 Abuse screen: Denies threats or abuse. Denies injuries from another. Nutritional ak1 screening: No deficits noted. Tuberculosis screening: No symptoms or risk factors identified. Fall Risk None identified. Assessment: 01:41 Reassessment: Patient appears in no apparent distress at this time. Patient is alert, ak1 oriented x 3, equal unlabored respirations, skin warm/dry/pink. pt no longer combative. pt no longer using repetitive words or motions. pt is now able to carry on conversation. pt stated she had a nightmare. Patient denies pain at this time. Patient states symptoms have improved. 02:28 Reassessment: pt used bed kirkland to urinate with assistance. ak1 02:32 Reassessment: pt attempted to take out her IV at the right AC. pt moved to end of bed ak1 to "go home" trying to get out of bed. pt confused and uncooperative. Dr. Oliveros notified and verbal orders for 10mg Geodon IM. pt placed in bed and reassured. 02:46 Reassessment: pt awake, alert and cooperative. pt stated she "fainted" pt taken to CT. ak1 pt earrings placed in labeled biohazard bag at bedside. . 03:00 Reassessment: Patient appears in no apparent distress at this time. Patient is alert, cc3 oriented x 3, equal unlabored respirations, skin warm/dry/pink. Patient came back from CT scan department, awaiting result. 03:17 Reassessment: Patient appears in no apparent distress at this time. Patient states ak1 symptoms have improved. pt resting with eyes closed, resp even, unlabored. pt appears to be sleeping. pt remains in view of the nurses station. . 03:32 Reassessment: Patient appears in no apparent distress at this time. pt reoriented each ak1 time she wakes. 04:30 Reassessment: Patient appears in no apparent distress at this time. pt awake and trying ak1 to climb from bed, Dr. Oliveros notified with orders given to charge nurse. pt urinated on bed. pt placed in a chair, linen changed, pt urinated on the floor. pt cleaned and placed back in bed and appears to be sleeping at this time with even unlabored resp. 06:30 Reassessment: Patient appears in no apparent distress at this time. No changes from ak1 previously documented assessment. Patient states symptoms have improved. 07:27 Reassessment: Patient appears in no apparent distress at this time. No changes from ph previously documented assessment. Pt asleep w/ equal and unlabored respirations, VSS, awaiting dispo. 08:16 Reassessment: Dr. Delacruz spoke with Dr. Her and would like pt transferred to the [facility] in [facility]. Pts daughter is at bedside and is agreeable to this. 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 Floor nurse notified of change. 08:25 Reassessment: pts daughter at bedside requesting pts 2 gold rings be given to her and tw2 she states she has her earrings, 2 gold rings removed and given to pt at this time, Haley,Benson was in the pts exam room at this time. 09:30 Reassessment: Patient appears in no apparent distress at this time. No changes from tw2 previously documented assessment. Patient is alert, oriented x 3, equal unlabored respirations, skin warm/dry/pink. 10:15 Reassessment: Patient appears in no apparent distress at this time. Pt attempting to ph get out of bed, states, " I need to use the bathroom." Pt assisted back into bed and informed that we would provide her w/ bedside commode. Pt replied, " Okay." and is resting in bed quietly. 10:50 Reassessment: Patient appears in no apparent distress at this time. No changes from tw2 previously documented assessment. 11:45 Reassessment: Patient appears in no apparent distress at this time. No changes from ph previously documented assessment. Pt resting comfortably w/ eyes closed, VSS, awaiting acceptance at [facility]. 13:00 Reassessment: Patient appears in no apparent distress at this time. No changes from ph previously documented assessment. 14:30 Reassessment: Patient appears in no apparent distress at this time. No changes from ph previously documented assessment. Patient and/or family updated on plan of care and expected duration. Pain level reassessed. Awaiting bed availability at [facility], pt resting quietly w/ stable VS. 16:04 Reassessment: Patient appears in no apparent distress at this time. No changes from tw2 previously documented assessment. Patient and/or family updated on plan of care and expected duration. Pain level reassessed. per FLORIN Mejia at [facility] unit discontinue all IV prior to pts arrival. 16:13 Reassessment: Patient appears in no apparent distress at this time. No changes from tw2 previously documented assessment. Patient and/or family updated on plan of care and expected duration. Pain level reassessed. Vital Signs: 01:09 BP 134 / 97; Pulse 85; Resp 18; Temp 98.5; Pulse Ox 94% on R/A; Weight 61.23 kg (R); ak1 Height 5 ft. 4 in. (162.56 cm) (R); Pain 0/10; 01:41 BP 160 / 62; Pulse 82; Resp 24; Pulse Ox 100% on 2 lpm NC; ak1 01:54 BP 133 / 80; Pulse 73; Resp 22; Pulse Ox 100% on 2 lpm NC; ak1 02:30 BP 99 / 79; Pulse 92; Resp 20; Pulse Ox 99% on 2 lpm NC; ak1 03:17 BP 146 / 66; Pulse 74; Resp 22; Pulse Ox 97% on 2 lpm NC; ak1 04:17 BP 149 / 83; Pulse 71; Resp 20; Pulse Ox 100% on 2 lpm NC; ak1 05:36 BP 167 / 74; Pulse 72; Resp 22; Pulse Ox 97% on 2 lpm NC; ak1 06:29 BP 132 / 99; Pulse 70; Resp 24; Temp 98.3; Pulse Ox 94% on 2 lpm NC; ak1 07:28 BP 130 / 84; Pulse 69; Resp 18; Pulse Ox 99% on 2 lpm NC; ph 08:27 BP 132 / 99; Pulse 77; Resp 17; Pulse Ox 97% on R/A; tw2 09:30 BP 128 / 77; Pulse 76; Resp 17; Pulse Ox 97% on R/A; tw2 10:49 BP 168 / 84; Pulse 65; Resp 18; Pulse Ox 100% on R/A; tw2 11:46 BP 149 / 96; Pulse 66; Resp 18; Pulse Ox 97% on 2 lpm NC; ph 13:00 BP 164 / 87; Pulse 68; Resp 18; Pulse Ox 97% on 2 lpm NC; ph 14:00 BP 127 / 57; Pulse 66; Resp 17; Pulse Ox 100% on R/A; tw2 15:00 BP 127 / 53; Pulse 89; Resp 16; Temp 98.3(O); Pulse Ox 98% on 2 lpm NC; tw2 16:00 BP 125 / 50; Pulse 87; Resp 22; Pulse Ox 100% on R/A; tw2 01:09 Body Mass Index 23.17 (61.23 kg, 162.56 cm) ak1 06:29 pt appears to be sleeping with mouth breathing. ak1 ED Course: 01:00 Arm band placed on Patient placed in an exam room, on a stretcher, on oxygen, on ak1 residential monitor, on pulse oximetry. 01:04 Patient arrived in ED. aa1 01:05 Kyler Oliveros MD is Attending Physician. wa 01:18 Tejal Cobb, RN is Primary Nurse. ak1 01:32 Triage completed. ak1 01:45 Patient has correct armband on for positive identification. Bed in low position. Call ak1 light in reach. Side rails up X2. equipment monitor phototypesetting on. Pulse ox on. NIBP on. 01:45 Inserted saline lock: 22 gauge in right antecubital area, using aseptic technique. cc3 Blood collected. inserted by consulting technical manager Filipe. 01:46 XRAY Chest (1 view) Sent. ak1 04:45 Head Brain Wo Cont CT In Process Unspecified. EDMS 06:46 One on one care 6 hours of one on one care with report given to day shift nurse. ak1 07:16 XRAY Chest (1 view) In Process Unspecified. EDMS 07:29 Chapo Delacruz MD is Hospitalizing Provider. wa 08:05 Awaiting: unsucessfull attempt to call report. tw2 08:09 No provider procedures requiring assistance completed. Patient admitted, IV remains in tw2 place. 08:24 Attending Physician role handed off by Kyler Oliveros MD kdr 08:24 Benny Her MD is Attending Physician. kdr 15:00 attempted transfer to [facility]. bd 15:56 Report given to FLORIN Mejia at [facility]. tw2 16:12 IV discontinued, intact, bleeding controlled, No redness/swelling at site. Pressure tw2 dressing applied, 22 g to right ac and 20 g to left ac discontinued at this time, pressure dressing applied. Administered Medications: 01:09 Drug: Geodon 10 mg Route: IM; Site: right vastus lateralis; ak1 01:46 Follow up: Response: No adverse reaction ak1 01:45 Drug: NS 0.9% 500 ml Route: IV; Rate: bolus; Site: right antecubital; cc3 02:20 Follow up: Response: No adverse reaction; IV Status: Completed infusion; IV Intake: cc3 500ml 02:36 Drug: Geodon 10 mg Route: IM; Site: left gluteus; ak1 03:10 Follow up: Response: No adverse reaction cc3 04:45 Drug: Ativan 1 mg Route: IVP; Site: right antecubital; aa1 04:59 Follow up: Response: No adverse reaction; RASS: Drowsy (-1) ak1 06:45 Drug: Rocephin - (cefTRIAXone) 1 grams Route: IVPB; Infused Over: 30 mins; Site: right ak1 antecubital; Intake: 02:20 IV: 500ml; Total: 500ml. cc3 Outcome: 07:30 Decision to Hospitalize by Provider. mo 08:09 Admitted to Med/surg accompanied by tech, via stretcher, room 202, Report called to peggy Julian RN 08:09 Condition: stable 08:09 Instructed on the need for admit. 16:11 ER care complete, transfer ordered by . [facility] 16:16 Patient left the ED. [facility] 16:16 Transferred by ground EMS [facility]. to other acute care facility: [facility]. Transfer form completed. X-rays sent w/ patient. 16:16 Condition: stable Signatures: Dispatcher [employer] EDMS Danielle Thompson Alissa RN RN aaBenny Becerril MD MD kdr Krenek, Amber RN RN ak1 Alexandria Matthews RN RN Cathie Dee RN RN tw2 Kyler Oliveros MD MD mo Esther Stephen cc3 Corrections: (The following items were deleted from the chart) 01:23 Presenting complaint: EMS states: they were called to [facility] for combative [facility] resident. EMS reported pt hit her head on the wall. pt arrived swinging her arms, trying to bite, trying to crawl from the stretcher and bed. wheezing noted upon arrival. ak1 01:23 Transition of care: patient was received from another setting of care (long-term [facility] care facility), [facility] 01:23 Onset of symptoms was November 01, 2019 [facility] ak 01:23 Risk Assessment: Do you want to hurt yourself or someone else? Patient reports no ak1 desire to harm self or others. ak1 01:23 Initial Sepsis Screen: Does the patient have a suspected source of infection? No. ak1 Patient's initial sepsis screen is negative. ak1 01:23 Note Halina at [facility] contacted. Halina stated pt did not hit her head. ak1 Halina stated pt came from her room to the [facility] she had a nightmare. pt was calm and walked to back to her room and then became violent. 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 pt daughter took pt to Dr. Delacruz yesterday where pt was prescribed Memantine HCL 5mg but has yet to start medication. Halina stated pt is normally A\\T\\OX3 and ambulatory. ak1 01:23 Method Of Arrival: EMS: [facility] ak1 ak1 15:52 15:00 BP 127 / 53; Pulse 89bpm; Resp 16bpm; Pulse Ox 98% 2 lpm Nasal Cannula; ph tw2
[2019-11-01] MEDS ORDERED: ACETAMINOPHEN 500 MG TAB PO PRN (07:35)
--- NOTE | 2019-11-01 07:45 | RAD REPORT ---
EXAM DESCRIPTION: Jaimet Single View11/01/2019 7:15 am CLINICAL HISTORY: Shortness of breath COMPARISON: July 2019 FINDINGS: Small right pleural effusion appears unchanged. Mild right basilar atelectasis. Moderate hiatal hernia Left lung appears clear. Heart is normal sized
--- NOTE | 2019-11-01 11:40 | RAD REPORT ---
EXAM DESCRIPTION: CT - Head Brain Wo Cont - 11/01/2019 5:55 am CLINICAL HISTORY: AMS. combative COMPARISON: None. TECHNIQUE: CT HEAD WITHOUT IV CONTRAST on 11/01/2019 1:07 AM PILER This exam was performed according to our departmental dose-optimization program, which includes autom ated exposure control, adjustment of the mA and/or kV according to patient size and/or use of iterati ve reconstruction technique. FINDINGS: There is no acute hemorrhage, mass effect or midline shift. 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 There is no hydrocephalus. There is mild bifrontal cerebral atrophy. There are mild patchy hypodensities within the periventricular and subcortical white matter, consistent with mi croangiopathic ischemic changes. The calvarium is intact. Orbits and globes are unremarkable. The paranasal sinuses are clear. Mastoid air cells are clear. IMPRESSION: No acute intracranial findings. Electronically signed by: Monroe Ray MD 11/01/2019 4:42 AM PILER Due to temporary technical issues with the PACS/Fluency reporting system, reports are being signed by the in house radiologist as a courtesy to ensure prompt reporting. The interpreting radiologist is f ully responsible for the content of the report.
[2019-11-02 02:47] VITALS: TEMP 98.3
[2019-11-02 03:03] VITALS: BP 125/50; O2SAT 100
== END 2019-11-01 16:16 ==
LOC: ER 00:59 → UNDOADMIN 07:33 → ERHOLD 07:33 → 2ND 08:10 → ER 16:16
DX: R45.1 Restlessness and agitation (principal); E03.9 Hypothyroidism, unspecified; G30.9 Alzheimer's disease, unspecified; F02.80 Dementia in other diseases classified elsewhere, unspecified severity, without behavioral disturbance, psychotic disturbance, mood disturbance, and anxiety; Z88.5 Allergy status to narcotic agent; Z88.8 Allergy status to other drugs, medicaments and biological substances
CPT/HCPCS: 96361; 93005; 87088; 85025; 87086; 80048; 36415; 83735; 85610; 80076; 80307 ×8; 84484; 83880; 70450; 71045; 96375; 96372; 96374; 99285; J3486; J0696; J7040; 81003; 81015

== ENCOUNTER 2020-05-12 21:23 | Emergency (ER) | payer OTHER ==
[~2020-05-12 21:23] MED LIST: Caclcium Chloride 10% INJ SYR IV ONE; EPINEPHrine 1 MG/10 ML SYR ONE; SODIUM CHL 0.9% 1000 ML BAG ONE
--- NOTE | 2020-05-12 22:09 | EDPHYS ---
Physician Documentation [facility] Name: Ciara Moraes Age: 84 yrs Sex: Female : 1935 Arrival Date: 05/12/2020 Time: 21:29 Bed 3 Private MD: AYAD Physician Pito Moulton HPI: 05/12 21:59 This 84 yrs old Female presents to ER via EMS with complaints of cpr in jordyn progress. 21:59 Preceding the arrest, the patient collapsed. [facility] at [facility] jordyn Pre-hospital course: The arrest was witnessed by [facility] staff. Bystanders at the scene performed CPR. EMS care prior to arrival: initiation of ACLS, intubation was successfully performed, oxygen, Other right IO. The patient has not experienced similar symptoms in the past. Historical: - Allergies: 21:44 bisphosponates; sg 21:44 Myrbetriq; sg 21:44 raloxifiene; sg 21:44 Trazodone; sg - PMHx: 21:44 Alzheimers; Hypothyroidism; sg - PSHx: 21:44 Unable to obtain; sg - Immunization history:: Adult Immunizations up to date. - Social history:: Smoking status: unknown. - Family history:: not pertinent. - Hospitalizations: : No recent hospitalization is reported. ROS: 21:59 Unable to obtain ROS due to patient is on ventilator, CPR IN PROGRESS. jordyn Exam: 21:59 Cardiovascular: Rate: actual rate is 0 bpm, Rhythm: asystole, Pulses: not palpable, jordyn Heart sounds: none, Edema: is not appreciated, JVD: is noted bilaterally, to 3 cm. 21:59 Respiratory: Respiratory rate: zero Vital Signs: 21:18 Pulse 32 MON; Resp 18 A; Pulse Ox 100% on 15 lpm ETT ambu; sg 21:29 Temp 97.2; sg 21:29 Pulse 0 MON; Resp 0; sg 21:29 Weight 65 kg; Height 5 ft. 4 in. (162.56 cm); sg 21:29 Body Mass Index 24.60 (65.00 kg, 162.56 cm) sg 21:18 PEA sg 21:29 Asystole sg MDM: 21:32 Patient medically screened. jordyn 22:06 Differential diagnosis: cardiac arrest. Data reviewed: vital signs, nurses notes, EMS jordyn record, [facility] records. Data interpreted: court recording monitor: rate is 0 beats/min, rhythm is pulseless electrical activity. Test interpretation: by ED physician or midlevel provider: not applicable. Counseling: I had a detailed discussion with the patient and/or guardian regarding: the historical points, exam findings, and any diagnostic results supporting the discharge/admit diagnosis, to daughter, student services advisor notified. 05/12 21:47 Order name: [facility] - FOR PT WITH NO ID sg Administered Medications: 21:20 Drug: EPINEPHrine 0.1mg/mL 1:10,000 1 mg Route: IVP; Site: left jugular; sg 21:23 Drug: Calcium Chloride 1 grams {Note: as a push.} Route: IVP; Site: left jugular; sg 21:25 Drug: EPINEPHrine 0.1mg/mL 1:10,000 1 mg Route: IVP; Site: left jugular; sg 21:27 Drug: Sodium Bicarbonate 1 amp Route: IVP; Site: right jugular; sg Disposition: Patient pronounced on 05/12/20 21:29 by Pito Moulton. Impression: Cardiac arrest. - Released to Home. Signatures: Dispatcher [employer] EDMu Faustin RN RN Pito Moulton MD MD cha Vicente, Ronaldo RN RN rv Corrections: (The following items were deleted from the chart) 23:35 22:08 05/12/2020 22:08 Patient pronounced on 05/12/2020 at 21:29 by Pito Moulton. rv Impression: Cardiac arrest. Released to Home. jordyn
--- NOTE | 2020-05-12 22:09 | ER ---
Nurse's Notes [facility] Name: Ciara Moraes Age: 84 yrs Sex: Female : 1935 Arrival Date: 05/12/2020 Time: 21:29 Bed 3 Private MD: Diagnosis: Cardiac arrest Presentation: 05/12 21:18 Acuity: MERLIN 1 sg 21:18 Chief complaint: EMS states: [place] staff report the pt had a fall this afternoon, was sg helping her into bed when she gasped for breath and then went unresponsive. Coronavirus screen: Proceed with normal triage. Ebola Screen: Patient negative for fever greater than or equal to 101.5 degrees Fahrenheit, and additional compatible Ebola Virus Disease symptoms Patient denies exposure to infectious person. Patient denies travel to an Ebola-affected area in the 21 days before illness onset. No symptoms or risks identified at this time. Initial Sepsis Screen: Does the patient meet any 2 criteria? No. Patient's initial sepsis screen is negative. Does the patient have a suspected source of infection? No. Patient's initial sepsis screen is negative. Risk Assessment: Do you want to hurt yourself or someone else? Patient reports no desire to harm self or others. Onset of symptoms was May 11, 2020. Care prior to arrival: Assisted ventilation, Oral intubation, CPR via thumper performed by EMS Medication(s) given: Epi x6, sodium bicarb x1 NS 1000 mL Glucose check: 175 Oxygen administered. via AMBU bag I/O to R TIB. Transition of care: patient was received from another setting of care (long-term care facility), [facility]. 21:18 Method Of Arrival: EMS: [facility] sg Historical: - Allergies: 21:44 bisphosponates; sg 21:44 Myrbetriq; sg 21:44 raloxifiene; sg 21:44 Trazodone; sg - PMHx: 21:44 Alzheimers; Hypothyroidism; sg - PSHx: 21:44 Unable to obtain; sg - Immunization history:: Adult Immunizations up to date. - Social history:: Smoking status: unknown. - Family history:: not pertinent. - Hospitalizations: : No recent hospitalization is reported. Assessment: 21:18 CPR assessment: unresponsive, pupils fixed \T\ dilated, no respiratory effort, intubated, sg Ambu ventilation, pulses present w/ compressions. CPR assessment: compressions began on scene by EMS CAKE INSPECTOR. Cardiac rhythm is PEA. 21:22 CPR assessment: unresponsive, no respiratory effort, intubated, Ambu ventilation. sg Cardiac rhythm is PEA. 21:27 CPR assessment: unresponsive, pupils fixed \T\ dilated, no respiratory effort, intubated, sg Ambu ventilation, pulses present w/ compressions. Cardiac rhythm is asystole. 21:56 Reassessment: [facility] notified of pt , . sg 22:35 Reassessment: [facility] has been contacted and is in route to the facility. sg Vital Signs: 21:18 Pulse 32 MON; Resp 18 A; Pulse Ox 100% on 15 lpm ETT ambu; sg 21:29 Temp 97.2; sg 21:29 Pulse 0 MON; Resp 0; sg 21:29 Weight 65 kg; Height 5 ft. 4 in. (162.56 cm); sg 21:29 Body Mass Index 24.60 (65.00 kg, 162.56 cm) sg 21:18 PEA sg 21:29 Asystole sg ED Course: 21:29 Patient arrived in ED. sg 21:29 Maintain EMS IV. I/O to R TIB. IV is patent, is intact. sg 21:32 Pito Moulton MD is Attending Physician. [facility] 21:35 called Adrian HOLLINS spoke with Cherie notified of . mw2 21:43 Triage completed. sg 21:53 Geoffrey Pickett, FLORIN is Primary Nurse. rv 22:08 Pito Moulton MD is Pronouncing Provider. jordyn Administered Medications: 21:20 Drug: EPINEPHrine 0.1mg/mL 1:10,000 1 mg Route: IVP; Site: left jugular; sg 21:23 Drug: Calcium Chloride 1 grams {Note: as a push.} Route: IVP; Site: left jugular; sg 21:25 Drug: EPINEPHrine 0.1mg/mL 1:10,000 1 mg Route: IVP; Site: left jugular; sg 21:27 Drug: Sodium Bicarbonate 1 amp Route: IVP; Site: right jugular; sg Outcome: 21:29 Patient : Time of 21:29 Pronounced by Pito Moulton MD sg 21:29 Condition: 23:35 Patient left the ED. rv Signatures: uM Kelly, RN RN sg Pito Moulton MD MD cha [place]brook, MyKena mw2 Geoffrey Pickett, RN RN rv Corrections: (The following items were deleted from the chart) : 21:40 General: Behavior is unresponsive. rv 21:40 Neuro: Level of Consciousness is unresponsive, Pupils are non-reactive, rv 21:40 Neuro: Pupils are dilated, rv 21:40 Cardiovascular: Rhythm is PEA rv 21:40 Respiratory: VIA AMBU BAG rv
[2020-05-12 23:46] VITALS: TEMP 97.2
== END 2020-05-12 23:35 | disposition expired ==
LOC: ER 21:23
DX: I46.9 Cardiac arrest, cause unspecified (principal); E03.9 Hypothyroidism, unspecified; G30.9 Alzheimer's disease, unspecified; F02.80 Dementia in other diseases classified elsewhere, unspecified severity, without behavioral disturbance, psychotic disturbance, mood disturbance, and anxiety; Z88.5 Allergy status to narcotic agent; Z88.8 Allergy status to other drugs, medicaments and biological substances
CPT/HCPCS: 36415; 82947; 92950; 99285; J0171; J7030